=== PATIENT | female | born 1950 | race African-American/Black ===

== ENCOUNTER → 2020-01-05 | Outpatient (CLI) | payer MEDICARE ==
--- NOTE | 2020-01-05 19:18 | CT ---
EXAMINATION TYPE: CT chest wo con DATE OF EXAM: 01/05/2020 COMPARISON: None HISTORY: chest mass CT DLP: 152.4 mGycm. Automated Exposure Control for Dose Reduction was Utilized. TECHNIQUE: CT scan of the thorax is performed without IV contrast. FINDINGS: Lack of intravenous contrast could compromise sensitivity. LUNGS: The lungs are grossly clear, there is no concerning parenchymal mass or nodule identified. T here is no pleural effusion or pneumothorax seen. The tracheobronchial tree is patent. MEDIASTINUM: Lack of IV contrast is noted to limit evaluation for mediastinal and especially hilar ad enopathy. There are no definitive greater than 1 cm hilar or mediastinal lymph nodes. No cardiomega ly or pericardial effusion is seen. 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 The right subclavian artery courses posterior to the esophagus. Mild coronary artery calcification suspected. OTHER: Fat density focus is present just superficial to the inferior margin of the left scapula cons istent with lipoma measuring approximately 4 cm in AP dimension by 2.8 cm in transverse dimension by 5 cm in cephalad to caudal dimension. Probable cortical cysts associated with the kidneys. Upper pole the right kidney shows a cystic focus measuring 5.8 cm, at the midpole the left kidney there is a lo w dense focus measuring 5 cm, additional low dense focus in the midpole the left kidney anteriorly me asures 2.8 cm in the lower pole focus measuring 11 mm. Low dense focus within the right lobe of liver towards the diaphragm measures 1 cm likely represent cyst. Question enlargement of the thyroid gland , correlate clinically. Retroaortic left renal vein is suspected. IMPRESSION: Noncontrast exam. Lipoma and the posterior left chest inferior margin of the left scapula as described. Correlate for patient's clinical abnormality which is not described in history. Possib le thyromegaly. Aberrant anatomy as described. Additional findings above.
== END | disposition home or self-care (01) ==
LOC: RADCTMAIN 15:08
PROVIDERS: ATTEND Family Medicine
DX: D17.1 Benign lipomatous neoplasm of skin and subcutaneous tissue of trunk (principal); R22.2 Localized swelling, mass and lump, trunk; Z88.1 Allergy status to other antibiotic agents
CPT/HCPCS: 71250

== ENCOUNTER 2023-03-24 10:55 | Observation (INO) | payer MEDICARE ==
[2023-03-24] MEDS ORDERED: NITROGLYCERIN SL TABS 0.4 MG TAB SUBLINGUAL STA (11:24)
[2023-03-24 11:59] LABS: Partial Thromboplastin Time 27.6 sec (22.0-30.0); Prothrombin Time 10.8 sec (9.0-12.0)
--- NOTE | 2023-03-24 12:12 | ED ---
Chest Pain HPI - General Chief Complaint: Chest Pain Stated Complaint: chest tightness Time Seen by Provider: 03/24/23 11:19 Source: patient, RN notes reviewed Mode of arrival: ambulatory Limitations: no limitations, physical limitation - History of Present Illness Initial Comments: This is a 72-year-old female who presents to the emergency department for chest pain and tightness. States that this started a couple of days ago. Denies any shortness of breath. Also denies any history of similar symptoms in the past. Pain is worse with exertion and improves with rest. Reports a history of a heart murmur, but otherwise denies any cardiac history. Denies any fevers, chills, sore throat, cough, dyspnea, palpitations, abdominal pain, nausea, vomiting, diarrhea, back pain, or headaches. MD Complaint: chest pain Onset/Timin -: days(s) - Related Data Home Medications Medication Instructions Recorded Confirmed Amiodarone [Cordarone] 100 mg PO BID 03/24/23 03/24/23 Apixaban [Eliquis] 5 mg PO BID 03/24/23 03/24/23 Aspirin EC [Ecotrin] 325 mg PO DAILY 03/24/23 03/24/23 Fluticasone Propionate 220 Mcg 2 puff INHALATION RT-BID 03/24/23 03/24/23 [Flovent 220 Mcg Inhaler] HYDROcodone/APAP 5-325MG [[place] 0.5 - 1 tab PO DAILY PRN 03/24/23 03/24/23 5-325] Ipratropium-Albuterol Nebulize 3 ml INHALATION RT-Q6H PRN 03/24/23 03/24/23 [Duoneb 0.5 mg-3 mg/3 ml Soln] Montelukast [Singulair] 10 mg PO HS 03/24/23 03/24/23 Simvastatin [Zocor] 20 mg PO DAILY 03/24/23 03/24/23 amLODIPine [Norvasc] 10 mg PO DAILY 03/24/23 03/24/23 Allergies Allergy/AdvReac Type Severity Reaction Status Date / Time No Known Allergies Allergy Verified 03/24/23 13:02 Review of Systems ROS Statement: Those systems with pertinent positive or pertinent negative responses have been documented in the HPI. ROS Other: All systems not noted in ROS Statement are negative. Past Medical History Past Medical History: Asthma Additional Past Medical History / Comment(s): Heart murmur, bronchitis. History of Any Multi-Drug Resistant Organisms: None Reported Past Surgical History: No Surgical Hx Reported Past Psychological History: No Psychological Hx Reported Smoking Status: Current every day smoker Past Alcohol Use History: None Reported Past Drug Use History: None Reported General Exam Limitations: no limitations, physical limitation General appearance: alert, in no apparent distress Head exam: Present: atraumatic, normocephalic, normal inspection Respiratory exam: Present: normal lung sounds bilaterally. Absent: respiratory distress, wheezes, rales, rhonchi, stridor, chest wall tenderness Cardiovascular Exam: Present: regular rate, normal rhythm, normal heart sounds. Absent: systolic murmur, diastolic murmur, rubs, gallop, clicks GI/Abdominal exam: Present: soft, normal bowel sounds. Absent: distended, tenderness, guarding, rebound, rigid Neurological exam: Present: alert, oriented X3, CN II-XII intact Psychiatric exam: Present: normal affect, normal mood Skin exam: Present: warm, dry, intact, normal color. Absent: rash Course Vital Signs 03/24/23 03/24/23 03/24/23 10:56 13:01 14:05 Temperature 98 F Pulse Rate 66 53 L 60 Respiratory 20 18 18 Rate Blood Pressure 167/71 164/85 165/87 O2 Sat by Pulse 98 100 100 Oximetry Chest Pain MDM - MDM This is a 72 year old female who presents to the emergency department for chest pain. Was pt. sent in by a medical professional or institution? @ -No Did you speak to anyone other than the patient for history? @ -No Did you review nursing and triage notes? @ -Yes, and I agree, it is accurate with regards to the patient's symptoms. Were old charts reviewed? @ -No Differential Diagnosis? @ -Differential Chest Pain: Stable Angina, Unstable Angina, STEMI, NSTEMI Aortic Dissection, Pneumothorax, Musculoskeletal, Esophageal Spasm GERD, Cholecystitis, Pancreatitis, Zoster, this is not meant to be an all-inclusive list. EKG interpreted by me (3pts min.)? @ -EKG interpreted by me demonstrating the following: Sinus bradycardia. Ventricular rate 55 BPM, CA interval 152 ms, QRS duration 85 ms, QTc 342 ms. X-rays interpreted by me (1pt min.)? @ -Chest x-ray obtained, my interpretation identifies no localized consolidations or infiltrates. CT interpreted by me (1pt min.)? @ -Not obtained U/S interpreted by me (1pt. min.)? @ -Not obtained What testing was considered but not performed? (CT, X-rays, U/S, labs)? Why? @ -None What meds were considered but not given? Why? @ -None Did you discuss the management of the patient with other professionals? @ -Yes, Dr. Salgado, who accepts the patient for admission. Did you reconcile home meds? @ -No Was smoking cessation discussed for >3mins.? @ -No Was critical care preformed (if so, how long)? @ -No Were there social determinants of health that impacted care today? How? (Homelessness, low income, unemployed, alcoholism, drug addiction, transportation, low edu. Level, literacy, decrease access to med. care, alf, rehab)? @ -No Was there de-escalation of care discussed even if they declined? (Discuss DNR or withdrawal of care, Hospice)? @ -No What co-morbidities impacted this encounter? (DM, HTN, Smoking, COPD, CAD, Cancer, CVA, Hep., AIDS, mental health diagnosis, sleep apnea, morbid obesity)? @ -Asthma, heart murmur Was patient admitted / discharged? @ -Admitted. Lab work obtained and found to be nonactionable. Chest x-ray reveals no acute process. She is given a dose of nitroglycerin, which she states significantly improved the chest pain/tightness sensation. However, symptoms returned shortly thereafterwards. We were going to do nitro paste, however she was hypotensive and we decided to avoid this for the meantime. Patient has a heart score of 4. Given her him symptoms, heart score, and the fact that symptoms are relieved with nitro, will admit to medicine for cardiac rule out. Serial troponins and cardiology consult ordered. Undiagnosed new problem with uncertain prognosis? @ -None Drug Therapy requiring intensive monitoring for toxicity (Heparin, Nitro, Insulin, Cardizem)? @ -None Were any procedures done? @ -None Diagnosis/symptom? @ -Chest pain Acute, or Chronic, or Acute on Chronic? @ -Acute Uncomplicated (without systemic symptoms) or Complicated (systemic symptoms)? @ -Uncomplicated Side effects of treatment? @ -None Exacerbation, Progression, or Severe Exacerbation] @ -Not applicable Poses a threat to life or bodily function? @ -Yes This case was discussed in detail with the attending ED physician, Dr. Lundberg. Presentation, findings, and treatment plan discussed in detail as well. Disposition Clinical Impression: Chest pain Disposition: ADMITTED IP TO THIS HOSP
[2023-03-24 12:19] LABS: ALT 12 U/L (4-34); AST 18 U/L (14-36); African American GFR (CKD) 74 (>60 ml/min/1.73 sqM); Alkaline Phosphatase 90 U/L (38-126); Anion Gap 10 mmol/L; Blood Urea Nitrogen 14 mg/dL (7-17); Carbon Dioxide 23 mmol/L (22-30); Chloride 108 mmol/L (98-107); Glucose 100 mg/dL (74-99); Magnesium 2.1 mg/dL (1.6-2.3); Non-African American GFR(CKD) 64 (>60 ml/min/1.73 sqM); Potassium 4.1 mmol/L (3.5-5.1); Sodium 141 mmol/L (137-145); Total Bilirubin 0.5 mg/dL (0.2-1.3)
--- NOTE | 2023-03-24 12:28 | XR ---
EXAMINATION TYPE: XR chest 2V DATE OF EXAM: 03/24/2023 COMPARISON: None HISTORY: 72-year-old female with chest pain TECHNIQUE: PA and lateral views FINDINGS: Heart upper limits of normal in size. Mild atherosclerotic arch calcifications. No consolidation or p leural effusion. IMPRESSION: No acute cardiopulmonary process.
[2023-03-24] MEDS ORDERED: NITROGLYCERIN 0.2MG/HR PATCH TRANSDERM STA (12:40)
[2023-03-24] MEDS ORDERED: NITROGLYCERIN 0.1MG/HR PATCH TRANSDERM ONE (12:40)
[2023-03-24 12:45] LABS: Basophils % (A) 1 %; Eosinophils # (A) 0.1 k/uL (0-0.7); Eosinophils % (A) 3 %; HCT 40.2 % (34.0-46.0); HGB 13.2 gm/dL (11.4-16.0); Lymphocytes # (A) 1.4 k/uL (1.0-4.8); Lymphocytes % (A) 29 %; MCH 30.5 pg (25.0-35.0); MCHC 32.7 g/dL (31.0-37.0); MCV 93.2 fL (80.0-100.0); Mean Platelet Volume 9.2; Monocytes # (A) 0.3 k/uL (0-1.0); Monocytes % (A) 7 %; Neutrophils # (A) 2.8 k/uL (1.3-7.7); Neutrophils % (A) 57 %; Platelet Count 244 k/uL (150-450); RBC 4.31 m/uL (3.80-5.40); RDW 15.5 % (11.5-15.5)
[2023-03-24] MEDS ORDERED: ONDANSETRON 4 MG/2 ML VIAL IVP PRN (13:43)
[2023-03-24] MEDS ORDERED: HYDROcodone/APAP 5-325MG 1 EACH TAB PO PRN (13:43)
[2023-03-24] MEDS ORDERED: NALOXONE 0.4 MG/ML 1 ML VIAL IV PRN (13:43)
[2023-03-24] MEDS ORDERED: ACETAMINOPHEN TAB 325 MG TAB PO PRN (13:43)
[2023-03-24] MEDS ORDERED: IPRATROPIUM-ALBUTEROL 3 ML NEB INHALATION PRN (16:14)
[2023-03-24] MEDS ORDERED: amLODIPine 10 MG TAB PO STA (19:23)
[2023-03-24] MEDS: MONTELUKAST 10 MG TAB PO SCH (20:22)
[2023-03-24] MEDS: AMIODARONE 100 MG TAB PO SCH (20:22)
[2023-03-24] MEDS: APIXABAN 5 MG TAB PO SCH (20:22)
--- NOTE | 2023-03-24 20:36 | HP ---
HISTORY AND PHYSICAL CHIEF COMPLAINT: Chest pain. HISTORY OF PRESENT ILLNESS: This is another admission for this 72-year-old female, who does have a history of hypertension. She has been fairly well controlled and doing well. She came into the emergency room with chest pain. She denied shortness of breath or diaphoresis. Troponin was normal. She was admitted for evaluation. PHYSICAL EXAMINATION: HEAD, EARS, EYES, NOSE, MOUTH, AND THROAT: Normal. CHEST: Clear. CARDIAC: Normal. ABDOMEN: Soft and nontender. EXTREMITIES: Normal. REVIEW OF SYSTEMS: Otherwise, negative. Past medical history, family history, and personal and social histories are all still noncontributory. DIAGNOSES: She is admitted to the hospital with diagnoses: 1. Chest pain. 2. History of hypertension. PLAN: 1. Bed rest. 2. IV fluids. 3. Control hypertension while working up her chest pain. MMODL / DARIELAN: [id number] /
[2023-03-25] MEDS: amLODIPine 10 MG TAB PO SCH (08:12)
[2023-03-25] MEDS: ATORVASTATIN 10 MG TAB PO SCH (08:12)
[2023-03-25] MEDS: APIXABAN 5 MG TAB PO SCH ×2 (08:12→20:31)
[2023-03-25] MEDS: AMIODARONE 100 MG TAB PO SCH ×2 (08:13→20:31)
--- NOTE | 2023-03-25 08:31 | P.CRDCN ---
History of Present Illness Consult date: 03/25/23 History of present illness: History of Present Illness: The patient is a 72-year-old female with history of hypertension, hyperlipidemia who stop smoking 2 weeks ago and presented with symptoms of chest discomfort. The discomfort woke her up from sleep around 3:00 in the morning and lasted for about an hour. She has no radiation with the discomfort or associated symptoms. She was recently admitted at [facility] and underwent an echocardiogram. She is on amiodarone and Eliquis she is not clear why, she thinks she had an arrhythmia. She has occasional palpitations but she was in sinus on presentation. She has a history of heart murmur but no documented history of ischemic heart disease. She has no PND, orthopnea or peripheral edema. She is average in her exercise tolerance and does not feel that the discomfort in the chest is activity related. On presentation her EKG showed no acute changes and her enzymes were normal. She is a nondiabetic but she has hypertension, hyperlipidemia and she stop smoking recently. Medications: Simvastatin 20 mg daily, Norvasc 10 mg daily, Singulair 10 mg daily, amiodarone 100 mg twice a day, aspirin, Flovent, Duoneb, Eliquis 5 mg twice a day Review of Systems: Respiratory: She has a history of dyspnea on exertion, stopped smoking 2 weeks ago GI: No nausea or vomiting . No history of peptic ulcer disease. No recent GI bleed. : No hematuria or dysuria. Nervous System: No stroke or seizure. Physical Examination: 72-year-old female, alert and oriented no apparent distress ,Blood pressure 160 /60, Heart rate 57 Head: Normocephalic. Eyes: Sclerae nonicteric. Neck: Good carotid upstroke, no bruit, no jugular venous distention. Lungs: Clear to auscultation. Heart: Regular rate and rhythm, S1-S2, no S3, no rub. Systolic ejection murmur, 2/6. Abdomen: Soft nontender, positive bowel sounds no organomegaly. Extremities: No edema, intact distal pulses. Labs: Hemoglobin 13.2, potassium 4.1, BUN 14, creatinine 0.9, troponin less than 0.012. Chest x-ray with no acute infiltrate EKG: Sinus mechanism, rate of [address]-T wave changes Impression: 1. Chest discomfort of unclear etiology, no evidence of acute coronary syndrome 2. Possible history of atrial fibrillation from her medications list. The patient is in sinus mechanism at this time 3. History of hypertension 4. History of hyperlipidemia 5. History of smoking, stopped 2 weeks ago Plan: 1. Obtain records of her recent admission including her echocardiogram 2. Proceed with stress echocardiogram 3. Continue present medical regimen 4. Depending on the results of her testing further recommendations will be made 5. Thank you for this consult we will follow with you. Past Medical History Past Medical History: Asthma Additional Past Medical History / Comment(s): Heart murmur, bronchitis. History of Any Multi-Drug Resistant Organisms: None Reported Past Surgical History: No Surgical Hx Reported Past Psychological History: No Psychological Hx Reported Smoking Status: Current every day smoker Past Alcohol Use History: None Reported Past Drug Use History: None Reported Medications and Allergies Home Medications Medication Instructions Recorded Confirmed Type Amiodarone [Cordarone] 100 mg PO BID 03/24/23 03/24/23 History Apixaban [Eliquis] 5 mg PO BID 03/24/23 03/24/23 History Aspirin EC [Ecotrin] 325 mg PO DAILY 03/24/23 03/24/23 History Fluticasone Propionate 220 Mcg 2 puff INHALATION RT-BID 03/24/23 03/24/23 Histor y [Flovent 220 Mcg Inhaler] HYDROcodone/APAP 5-325MG [[place] 0.5 - 1 tab PO DAILY PRN 03/24/23 03/24/23 History 5-325] Ipratropium-Albuterol Nebulize 3 ml INHALATION RT-Q6H PRN 03/24/23 03/24/23 History [Duoneb 0.5 mg-3 mg/3 ml Soln] Montelukast [Singulair] 10 mg PO HS 03/24/23 03/24/23 History Simvastatin [Zocor] 20 mg PO DAILY 03/24/23 03/24/23 History amLODIPine [Norvasc] 10 mg PO DAILY 03/24/23 03/24/23 History Allergies Allergy/AdvReac Type Severity Reaction Status Date / Time No Known Allergies Allergy Verified 03/24/23 13:02 Physical Exam Vitals: Vital Signs Temp Pulse Pulse Resp BP BP Pulse Ox 03/25/23 07:53 99 03/25/23 06:59 98.3 F 57 L 16 160/65 99 03/25/23 02:35 97.8 F 46 L 12 143/72 100 03/24/23 19:50 98.1 F 51 L 14 144/54 100 03/24/23 17:40 98.3 F 52 L 16 176/53 100 03/24/23 17:06 55 L 18 171/76 99 03/24/23 14:05 60 18 165/87 100 03/24/23 13:01 53 L 18 164/85 100 03/24/23 10:56 98 F 66 20 167/71 98 Intake and Output 03/24/23 03/25/23 03/25/23 22:59 06:59 14:59 Other: # Voids 0 1 Weight 60.781 kg Results 03/24/23 11:09 03/24/23 11:09 Cardiac Enzymes 03/24/23 03/24/23 03/24/23 Range/Units 11:09 11:09 14:14 AST 18 (14-36) U/L Troponin I <0.012 <0.012 (0.000-0.034) ng/mL 03/24/23 Range/Units 17:49 AST (14-36) U/L Troponin I <0.012 (0.000-0.034) ng/mL Coagulation 03/24/23 Range/Units 11:09 PT 10.8 (9.0-12.0) sec APTT 27.6 (22.0-30.0) sec CBC 03/24/23 Range/Units 11:09 WBC 5.0 (3.8-10.6) k/uL RBC 4.31 (3.80-5.40) m/uL Hgb 13.2 (11.4-16.0) gm/dL Hct 40.2 (34.0-46.0) % Plt Count 244 (150-450) k/uL Comprehensive Metabolic Panel 03/24/23 Range/Units 11:09 Sodium 141 (137-145) mmol/L Potassium 4.1 (3.5-5.1) mmol/L Chloride 108 H (98-107) mmol/L Carbon Dioxide 23 (22-30) mmol/L BUN 14 (7-17) mg/dL Creatinine 0.90 (0.52-1.04) mg/dL Glucose 100 H (74-99) mg/dL Calcium 9.0 (8.4-10.2) mg/dL AST 18 (14-36) U/L ALT 12 (4-34) U/L Alkaline Phosphatase 90 (38-126) U/L Total Protein 7.0 (6.3-8.2) g/dL Albumin 4.0 (3.5-5.0) g/dL Current Medications Generic Name Dose Route Start Last Admin Trade Name Freq PRN Reason Stop Dose Admin Acetaminophen 650 mg 03/24/23 13:43 Acetaminophen Tab 325 Mg Tab PO Q6HR PRN Mild Pain or Fever > 100.5 Hydrocodone Bitart/Acetaminophen 1 each 03/24/23 13:43 Hydrocodone/Apap 5-325mg 1 Each Tab PO Q4HR PRN Moderate Pain (Scale 4 to 6) Albuterol/Ipratropium 3 ml 03/24/23 16:14 Ipratropium-Albuterol 3 Ml Neb INHALATION RT-Q6H PRN Shortness Of Breath Amiodarone HCl 100 mg 03/24/23 21:00 03/25/23 08:13 Amiodarone 100 Mg Tab PO Not Given BID HERB Amlodipine Besylate 10 mg 03/25/23 09:00 03/25/23 08:12 Amlodipine 10 Mg Tab PO 10 mg DAILY HERB Administration Apixaban 5 mg 03/24/23 21:00 03/25/23 08:12 Apixaban 5 Mg Tab PO 5 mg BID HERB Administration Protocol Aspirin 325 mg 03/25/23 09:00 03/25/23 08:12 Aspirin 325 Mg Tab PO 325 mg DAILY HERB Administration Atorvastatin Calcium 10 mg 03/25/23 09:00 03/25/23 08:12 Atorvastatin 10 Mg Tab PO 10 mg DAILY HERB Administration Montelukast Sodium 10 mg 03/24/23 21:00 03/24/23 20:22 Montelukast 10 Mg Tab PO 10 mg HS HERB Administration Naloxone HCl 0.2 mg 03/24/23 13:43 Naloxone 0.4 Mg/Ml 1 Ml Vial IV Q2M PRN Opioid Reversal Ondansetron HCl 4 mg 03/24/23 13:43 Ondansetron 4 Mg/2 Ml Vial IVP Q8HR PRN Nausea And Vomiting Intake and Output 03/24/23 03/25/23 03/25/23 22:59 06:59 14:59 Other: # Voids 0 1 Weight 60.781 kg 03/24/23 11:09 03/24/23 11:09
[2023-03-25] MEDS ORDERED: ASPIRIN 325 MG TAB PO SCH (09:00)
[2023-03-25] MEDS: ASPIRIN 81 MG PO SCH (09:13)
--- NOTE | 2023-03-25 13:21 | CA ---
Stress Echo Report Emilia Reyes Age: 72 Gender: F : 1950 Exam Date: 03/25/2023 10:55 Exam Location: [facility] Ht (in): 63 Wt (lb): 134 Ordering Physician: Sonia Monterroso MD ([id number]) Referring Physician: SONIA MONTERROSO,, Electrical Cad Technician: Garima Russo RDCS Technologist Procedure CPT: Indication: Chest Pain ICD-9 Codes: Rhythm: Patient History: Atypical angina, Hyperlipidemia, Hypertension, Family history Cardiac Medications: Medications in past 24 hours: Contrast: Stress Results Protocol: Montrell Total dose(mL): Exercise Duration (min:sec): 7:[address] Depression (mm): Angina Score: Dias Score: METS: 8.9 Resting HR: 53 Resting BP: 153 / 73 Peak HR: 124 Peak BP: 189 / 85 Max Predicted HR: 148 84 % Max Predicted HR Target HR: 126 Double Product: [id number] Stress Summary: BP Response: Normal Reason for Termination: MAX EXERTION,Fatigue Cardiac Symptoms: NO SYMPTOMS ECG Analysis Resting ECG: Normal sinus rhythm, normal ECG Stress ECG: No abnormal ST/T wave changes with exercise Arrhythmia: None Echo Analysis Resting Echo: Normal resting echocardiogram. Peak Echo Analysis: Normal wall thickening and motion MEASUREMENTS (Male/Female) Normal Values CONCLUSIONS 1. Good exercise tolerance with normal electrocardiographic response to exercise 2. Normal stress echocardiogram with no evidence of stress- induced ischemia. Dr. Sonia Monterroso MD (Electronically Signed) Final Date: 25 March 2023 13:20
[2023-03-25 14:18] LABS: LDL Cholesterol,Calculated 91.1 mg/dL (0.0-131.0); VLDL Calculation 15.32 mg/dL (5.00-40.00)
[2023-03-25] MEDS ORDERED: ARTIFICIAL TEARS-HYPROMELLOSE DROPS 15 ML BTL BOTH EYES PRN (17:01)
[2023-03-25] MEDS: MONTELUKAST 10 MG TAB PO SCH (20:31)
--- NOTE | 2023-03-26 01:55 | PN ---
PROGRESS NOTE CHIEF COMPLAINT: Chest pain. HISTORY OF PRESENT ILLNESS: This lady is doing well and the pain has subsided. REVIEW OF SYSTEMS: Otherwise unremarkable. PHYSICAL EXAMINATION: CHEST: Clear. CARDIAC: Normal. She is in sinus rhythm. IMPRESSION: 1. Chest pain. 2. History of recent onset of atrial fibrillation, under control with amiodarone. PLAN: Increase activity and wait for recommendations from Cardiology. MMODL / IJN: [id number] /
[2023-03-26 08:12] VITALS: PULSE 54; RESP 16
[2023-03-26] MEDS: ASPIRIN 81 MG PO SCH (08:26)
[2023-03-26] MEDS: APIXABAN 5 MG TAB PO SCH (08:26)
[2023-03-26] MEDS: AMIODARONE 100 MG TAB PO SCH (08:26)
[2023-03-26] MEDS: amLODIPine 10 MG TAB PO SCH (08:26)
[2023-03-26] MEDS: ATORVASTATIN 10 MG TAB PO SCH (08:26)
--- NOTE | 2023-03-26 10:48 | P.PN ---
Subjective Progress Note Date: 03/26/23 History of Present Illness: The patient is a 72-year-old female with history of hypertension, hyperlipidemia who stop smoking 2 weeks ago and presented with symptoms of chest discomfort. The discomfort woke her up from sleep around 3:00 in the morning and lasted for about an hour. She has no radiation with the discomfort or associated symptoms. She was recently admitted at [facility] and underwent an echocardiogram. She is on amiodarone and Eliquis she is not clear why, she thinks she had an arrhythmia. She has occasional palpitations but she was in sinus on presentation. She has a history of heart murmur but no documented history of ischemic heart disease. She has no PND, orthopnea or peripheral edema. She is average in her exercise tolerance and does not feel that the di scomfort in the chest is activity related. On presentation her EKG showed no acute changes and her enzymes were normal. She is a nondiabetic but she has hypertension, hyperlipidemia and she stop smoking recently. Medications: Simvastatin 20 mg daily, Norvasc 10 mg daily, Singulair 10 mg daily, amiodarone 100 mg twice a day, aspirin, Flovent, Duoneb, Eliquis 5 mg twice a day 03/26 Patient underwent stress echocardiogram that was normal. Sec. has attempted to obtain records from [facility] yesterday and today with no results. Patient states that she has appointment with Dr. Aaron for follow-up on March 30. Blood pressure is 162/77, heart rate in the 50s, afebrile, pulse ox 100% on room air. Physical Examination: 72-year-old female, alert and oriented no apparent distress ,Blood pressure 160/60, Heart rate 57 Head: Normocephalic. Eyes: Sclerae nonicteric. Neck: Good carotid upstroke, no bruit, no jugular venous distention. Lungs: Clear to auscultation. Heart: Regular rate and rhythm, S1-S2, no S3, no rub. Systolic ejection murmur, 2/6. Abdomen: Soft nontender, positive bowel sounds no organomegaly. Extremities: No edema, intact distal pulses. Impression: 1. Chest discomfort of unclear etiology, no evidence of acute coronary syndrome 2. Possible history of atrial fibrillation from her medications list. The patient is in sinus mechanism at this time 3. History of hypertension 4. History of hyperlipidemia 5. History of smoking, stopped 2 weeks ago Plan: 1. Obtain records of her recent admission including her echocardiogram--no records obtained after 2 requests 2. Negative stress echocardiogram 3. Continue present medical regimen 4. Patient is cleared from cardiology for discharge to make follow-up with Dr. Aaron is scheduled. Impression and plan of care have been directed as dictated by the signing physician. Bonnie Aggarwal nurse practitioner acting as scribe for signing physician. Objective - Vital Signs Vital signs: Vital Signs Temp 97.7 F 03/26/23 02:35 Pulse 50 L 03/26/23 02:35 Resp 13 03/26/23 02:35 BP 137/71 03/26/23 02:35 Pulse Ox 100 03/26/23 02:35 FiO2 Intake & Output 03/25/23 03/26/23 03/26/23 18:59 06:59 18:59 Intake Total 236 Balance 236 Intake: Oral 236 Other: Voiding Method Toilet Toilet # Voids 1 2 - Labs CBC & Chem 7: 03/24/23 11:09 03/24/23 11:09 Labs: Abnormal Lab Results - Last 24 Hours (Table) 03/24/23 Range/Units 11:09 HDL Cholesterol 62.60 H (40.00-60.00) mg/dL
[2023-03-26 14:03] VITALS: BP 119/62; TEMP 98.5
--- NOTE | 2023-03-27 10:04 | DS ---
DISCHARGE SUMMARY CHIEF COMPLAINT: Chest pain. HISTORY OF PRESENT ILLNESS AND PHYSICAL EXAMINATION: Details of this lady's history and physical can be found in the initial workup. LABORATORY STUDIES: While she is in a hospital, she had laboratory studies, details of which can be found in the laboratory section of her chart. COURSE IN HOSPITAL: After admission, she was placed on bedrest on intravenous fluids and she had serial EKGs and enzymes which were normal. She was seen by Cardiology. It was not felt that she required any further intervention and she was stable and she will go home on and will be followed up in the office in several days. FINAL DIAGNOSES: 1. Chest pain. 2. Hypertension. OPERATIONS: None. CONSULTATIONS: Cardiology, she is improved. MMODL / IJN: [id number] /
== END 2023-03-26 18:18 | disposition home or self-care (01) ==
LOC: EC 10:55 → 6NMEDSUR 14:43
PROVIDERS: ADMIT Family Medicine; ATTEND Family Medicine
DX: R07.89 Other chest pain (principal); I10 Essential (primary) hypertension; I48.91 Unspecified atrial fibrillation; E78.5 Hyperlipidemia, unspecified; Z79.899 Other long term (current) drug therapy; R01.1 Cardiac murmur, unspecified; Z87.891 Personal history of nicotine dependence; Z79.01 Long term (current) use of anticoagulants; Z79.82 Long term (current) use of aspirin; Z82.49 Family history of ischemic heart disease and other diseases of the circulatory system
CPT/HCPCS: 99285; 36415; 94760; 93005; 93351; 80061; 80053; 83735; 84484; 85025; 85610; 85730; 71046; G0378 ×3

== ENCOUNTER 2023-05-30 08:53 | Emergency (ER) | payer MEDICARE ==
--- NOTE | 2023-05-30 09:31 | XR ---
EXAMINATION TYPE: XR chest 2V DATE OF EXAM: 05/30/2023 COMPARISON: 05/22/2023 HISTORY: Difficulty breathing TECHNIQUE: Frontal and lateral views of the chest are obtained. FINDINGS: There is no focal air space opacity, pleural effusion, or pneumothorax seen. The cardiac silhouette size is within normal limits. The osseous structures are intact. IMPRESSION: No acute cardiopulmonary process. No significant interval change.
--- NOTE | 2023-05-30 09:51 | ED ---
General Adult HPI - General Chief complaint: Recheck/Abnormal Lab/Rx Stated complaint: Chest Pain Time Seen by Provider: 05/30/23 09:01 Source: patient, RN notes reviewed, old records reviewed Mode of arrival: ambulatory Limitations: no limitations - History of Present Illness Initial comments: 72-year-old female presenting for recheck of chest tightness. Ongoing issue for at least a month maybe longer. She is been admitted to the hospital and stress test performed she is undergoing out further outpatient testing. She states her symptoms are unchanged but continue. No pain. No cough. No fever. - Related Data Home Medications Medication Instructions Recorded Confirmed Amiodarone [Cordarone] 100 mg PO BID 03/24/23 03/24/23 Apixaban [Eliquis] 5 mg PO BID 03/24/23 03/24/23 Aspirin EC [Ecotrin] 325 mg PO DAILY 03/24/23 03/24/23 Fluticasone Propionate 220 Mcg 2 puff INHALATION RT-BID 03/24/23 03/24/23 [Flovent 220 Mcg Inhaler] HYDROcodone/APAP 5-325MG [[place] 0.5 - 1 tab PO DAILY PRN 03/24/23 03/24/23 5-325] Ipratropium-Albuterol Nebulize 3 ml INHALATION RT-Q6H PRN 03/24/23 03/24/23 [Duoneb 0.5 mg-3 mg/3 ml Soln] Montelukast [Singulair] 10 mg PO HS 03/24/23 03/24/23 Simvastatin [Zocor] 20 mg PO DAILY 03/24/23 03/24/23 amLODIPine [Norvasc] 10 mg PO DAILY 03/24/23 03/24/23 Previous Rx's Medication Instructions Recorded Albuterol Inhaler [Ventolin Hfa 1 puff INHALATION QID #8 gm 05/22/23 Inhaler] Doxycycline Hyclate 100 mg PO BID 7 Days #14 capsule 05/22/23 predniSONE [Deltasone] 40 mg PO DAILY 5 Days #10 tab 05/22/23 Allergies Allergy/AdvReac Type Severity Reaction Status Date / Time No Known Allergies Allergy Verified 05/30/23 09:01 Review of Systems ROS Statement: Those systems with pertinent positive or pertinent negative responses have been documented in the HPI. ROS Other: All systems not noted in ROS Statement are negative. Past Medical History Past Medical History: Asthma Additional Past Medical History / Comment(s): Heart murmur, bronchitis. History of Any Multi-Drug Resistant Organisms: None Reported Past Surgical History: No Surgical Hx Reported Past Psychological History: No Psychological Hx Reported Smoking Status: Former smoker Past Alcohol Use History: None Reported Past Drug Use History: None Reported General Exam Limitations: no limitations General appearance: alert, in no apparent distress Head exam: Present: atraumatic, normocephalic Eye exam: Present: normal appearance, PERRL ENT exam: Present: normal exam Neck exam: Present: normal inspection. Absent: tenderness, meningismus Respiratory exam: Present: normal lung sounds bilaterally. Absent: respiratory distress, wheezes Cardiovascular Exam: Present: regular rate, normal rhythm GI/Abdominal exam: Present: soft. Absent: distended, tenderness, guarding Extremities exam: Present: normal inspection. Absent: pedal edema, calf tenderness Neurological exam: Present: alert, oriented X3, CN II-XII intact. Absent: motor sensory deficit Psychiatric exam: Present: normal affect, normal mood Course Vital Signs 05/30/23 08:57 Temperature 98.1 F Pulse Rate 58 L Respiratory 18 Rate Blood Pressure 161/77 O2 Sat by Pulse 98 Oximetry Medical Decision Making - Medical Decision Making Was pt. sent in by a medical professional or institution (ORTIZ Finch, CHASSIS WIRER, urgent care, hospital, or fpc...) When possible be specific @ -No Did you speak to anyone other than the patient for history (EMS, parent, family, police, friend...)? What history was obtained from this source @ -No Did you review nursing and triage notes (agree or disagree)? Why? @ -I reviewed and agree with nursing and triage notes Were old charts reviewed (outside hosp., previous admission, EMS record, old EKG, old radiological studies, urgent care reports/EKG's, fpc records)? Report findings @ -No old charts were reviewed Differential Diagnosis (chest pain, altered mental status, abdominal pain women, abdominal pain men, vaginal bleeding, weakness, fever, dyspnea, syncope, headache, dizziness, GI bleed, back pain, seizure, CVA, palpatations, mental health, musculoskeletal)? @ Differential Chest Pain: Stable Angina, Unstable Angina, STEMI, NSTEMI Aortic Dissection, Pneumothorax, Musculoskeletal, Esophageal Spasm GERD, Cholecystitis, Pancreatitis, Zoster, this is not meant to be an all-inclusive list. EKG interpreted by me (3pts min.). @ Sinus bradycardia 51, [place] interval 146, QRS duration 96, QTC 460, no ST segment elevation. X-rays interpreted by me (1pt min.). @Chest x-ray, no acute cardiac primary findings, no pneumothorax, no focal pneumonia CT interpreted by me (1pt min.). @ -None done U/S interpreted by me (1pt. min.). @ -None done What testing was considered but not performed or refused? (CT, X-rays, U/S, labs)? Why? @ -None What meds were considered but not given or refused? Why? @ -None Did you discuss the management of the patient with other professionals (professionals i.e. , PA, CHASSIS WIRER, lab, RT, psych nurse, oncology social work, operational trainer, teacher, air defense control officer, case planner)? Give summary @ -No Was smoking cessation discussed for >3mins.? @ -No Was critical care preformed (if so, how long)? @ -No Were there social determinants of health that impacted care today? How? (Homelessness, low income, unemployed, alcoholism, drug addiction, transportation, low edu. Level, literacy, decrease access to med. care, [facility], rehab)? @ -No Was there de-escalation of care discussed even if they declined (Discuss DNR or withdrawal of care, Hospice)? DNR status @ -No What co-morbidities impacted this encounter? (DM, HTN, Smoking, COPD, CAD, Cancer, CVA, ARF, Chemo, Hep., AIDS, mental health diagnosis, sleep apnea, morbid obesity)? @ -Hypertension, atrial fibrillation, chronic bronchitis Was patient admitted / discharged? Hospital course, mention meds given and route, prescriptions, significant lab abnormalities, going to OR and other pertinent info. @17-year-old female with episode of chest tightness which is been ongoing for the past month. EKG is sinus bradycardia without ST segment elevation. Patient's lungs are clear to auscultation. She is on our requests and has been compliant with medications. She has no cough or fever. She is following up with cardiology and her primary care provider and is stable for continued outpatient follow-up. Laboratory testing are unremarkable. Undiagnosed new problem with uncertain prognosis? @ -No Drug Therapy requiring intensive monitoring for toxicity (Heparin, Nitro, Insulin, Cardizem)? @ -No Were any procedures done? @ -No Diagnosis/symptom? @ -Chest tightness Acute, or Chronic, or Acute on Chronic? @Chronic Uncomplicated (without systemic symptoms) or Complicated (systemic symptoms)? @ -default Side effects of treatment? @ -No Exacerbation, Progression, or Severe Exacerbation? @ -No Poses a threat to life or bodily function? How? (Chest pain, [place], [place], pneumonia, PE, COPD, DKA, ARF, appy, cholecystitis, CVA, Diverticulitis, Homicidal, Suicidal, threat to staff... and all critical care pts) @ -No - Lab Data Result diagrams: 05/30/23 09:15 05/30/23 09:15 Lab Results 05/30/23 05/30/23 05/30/23 Range/Units 09:15 09:15 09:15 WBC 8.4 (3.8-10.6) k/uL RBC 4.54 (3.80-5.40) m/uL Hgb 13.3 (11.4-16.0) gm/dL Hct 41.3 (34.0-46.0) % MCV 90.9 (80.0-100.0) fL MCH 29.4 (25.0-35.0) pg MCHC 32.3 (31.0-37.0) g/dL RDW 15.1 (11.5-15.5) % Plt Count 270 (150-450) k/uL MPV 7.7 Neutrophils % 69 % Lymphocytes % 22 % Monocytes % 6 % Eosinophils % 2 % Basophils % 0 % Neutrophils # 5.8 (1.3-7.7) k/uL Lymphocytes # 1.8 (1.0-4.8) k/uL Monocytes # 0.5 (0-1.0) k/uL Eosinophils # 0.2 (0-0.7) k/uL Basophils # 0.0 (0-0.2) k/uL PT 10.3 (9.0-12.0) sec INR 1.0 (<1.2) APTT 22.6 (22.0-30.0) sec Sodium 140 (137-145) mmol/L Potassium 4.0 (3.5-5.1) mmol/L Chloride 106 (98-107) mmol/L Carbon Dioxide 26 (22-30) mmol/L Anion Gap 8 mmol/L BUN 19 H (7-17) mg/dL Creatinine 0.88 (0.52-1.04) mg/dL Est GFR (CKD-EPI)AfAm 76 (>60 ml/min/1.73 sqM) Est GFR (CKD-EPI)NonAf 66 (>60 ml/min/1.73 sqM) Glucose 101 H (74-99) mg/dL Calcium 9.2 (8.4-10.2) mg/dL Magnesium 2.2 (1.6-2.3) mg/dL Total Bilirubin 0.5 (0.2-1.3) mg/dL AST 19 (14-36) U/L ALT 12 (4-34) U/L Alkaline Phosphatase 82 (38-126) U/L Troponin I (0.000-0.034) ng/mL NT-Pro-B Natriuret Pep 28 pg/mL Total Protein 6.9 (6.3-8.2) g/dL Albumin 3.9 (3.5-5.0) g/dL 05/30/23 Range/Units 09:15 WBC (3.8-10.6) k/uL RBC (3.80-5.40) m/uL Hgb (11.4-16.0) gm/dL Hct (34.0-46.0) % MCV (80.0-100.0) fL MCH (25.0-35.0) pg MCHC (31.0-37.0) g/dL RDW (11.5-15.5) % Plt Count (150-450) k/uL MPV Neutrophils % % Lymphocytes % % Monocytes % % Eosinophils % % Basophils % % Neutrophils # (1.3-7.7) k/uL Lymphocytes # (1.0-4.8) k/uL Monocytes # (0-1.0) k/uL Eosinophils # (0-0.7) k/uL Basophils # (0-0.2) k/uL PT (9.0-12.0) sec INR (<1.2) APTT (22.0-30.0) sec Sodium (137-145) mmol/L Potassium (3.5-5.1) mmol/L Chloride (98-107) mmol/L Carbon Dioxide (22-30) mmol/L Anion Gap mmol/L BUN (7-17) mg/dL Creatinine (0.52-1.04) mg/dL Est GFR (CKD-EPI)AfAm (>60 ml/min/1.73 sqM) Est GFR (CKD-EPI)NonAf (>60 ml/min/1.73 sqM) Glucose (74-99) mg/dL Calcium (8.4-10.2) mg/dL Magnesium (1.6-2.3) mg/dL Total Bilirubin (0.2-1.3) mg/dL AST (14-36) U/L ALT (4-34) U/L Alkaline Phosphatase (38-126) U/L Troponin I <0.012 (0.000-0.034) ng/mL NT-Pro-B Natriuret Pep pg/mL Total Protein (6.3-8.2) g/dL Albumin (3.5-5.0) g/dL Disposition Clinical Impression: Chest pain Disposition: HOME SELF-CARE Condition: Fair Instructions (If sedation given, give patient instructions): Chest Pain (ED) Is patient prescribed a controlled substance at d/c from ED?: No Referrals: Jaren Salgado MD [Primary Care Provider] - 1-2 days Time of Disposition: 11:11
[2023-05-30 10:24] LABS: Basophils % (A) 0 %; Eosinophils # (A) 0.2 k/uL (0-0.7); Eosinophils % (A) 2 %; HCT 41.3 % (34.0-46.0); HGB 13.3 gm/dL (11.4-16.0); Lymphocytes # (A) 1.8 k/uL (1.0-4.8); Lymphocytes % (A) 22 %; MCH 29.4 pg (25.0-35.0); MCHC 32.3 g/dL (31.0-37.0); MCV 90.9 fL (80.0-100.0); Mean Platelet Volume 7.7; Monocytes # (A) 0.5 k/uL (0-1.0); Monocytes % (A) 6 %; Neutrophils # (A) 5.8 k/uL (1.3-7.7); Neutrophils % (A) 69 %; Platelet Count 270 k/uL (150-450); RBC 4.54 m/uL (3.80-5.40); RDW 15.1 % (11.5-15.5); WBC 8.4 k/uL (3.8-10.6)
[2023-05-30 10:41] LABS: ALT 12 U/L (4-34); AST 19 U/L (14-36); African American GFR (CKD) 76 (>60 ml/min/1.73 sqM); Albumin 3.9 g/dL (3.5-5.0); Alkaline Phosphatase 82 U/L (38-126); Anion Gap 8 mmol/L; Blood Urea Nitrogen 19 mg/dL (7-17); Calcium 9.2 mg/dL (8.4-10.2); Carbon Dioxide 26 mmol/L (22-30); Chloride 106 mmol/L (98-107); Glucose 101 mg/dL (74-99); Magnesium 2.2 mg/dL (1.6-2.3); Non-African American GFR(CKD) 66 (>60 ml/min/1.73 sqM); Sodium 140 mmol/L (137-145); Total Bilirubin 0.5 mg/dL (0.2-1.3); Total Protein 6.9 g/dL (6.3-8.2)
[2023-05-30 10:47] LABS: NT-Pro-B-Type Natriuretic Pept 28 pg/mL
[2023-05-30 10:50] LABS: Partial Thromboplastin Time 22.6 sec (22.0-30.0); Prothrombin Time 10.3 sec (9.0-12.0)
[2023-05-30 20:03] VITALS: BP 144/75; PULSE 53; RESP 16; TEMP 98.2
== END 2023-05-30 11:32 | disposition home or self-care (01) ==
LOC: EC 08:53
DX: R07.89 Other chest pain (principal); R00.1 Bradycardia, unspecified; I10 Essential (primary) hypertension; I48.91 Unspecified atrial fibrillation; J45.909 Unspecified asthma, uncomplicated; Z79.51 Long term (current) use of inhaled steroids; Z79.82 Long term (current) use of aspirin; Z79.01 Long term (current) use of anticoagulants; Z79.899 Other long term (current) drug therapy; Z87.891 Personal history of nicotine dependence
CPT/HCPCS: 36415; 71046; 80053; 83735; 83880; 84484; 85025; 85610; 85730; 93005; 99283

== ENCOUNTER 2023-09-12 08:24 | Emergency (ER) | payer MEDICARE ==
[2023-09-12 08:34] VITALS: RESP 20; TEMP 97.7
[2023-09-12] MEDS ORDERED: SODIUM CHLORIDE 0.9% 1,000 ML IV ONE (08:45)
--- NOTE | 2023-09-12 08:48 | ED ---
General Adult HPI - General Chief complaint: Dizziness Stated complaint: congestion dizziness Time Seen by Provider: 09/12/23 08:26 Source: patient, EMS, RN notes reviewed, old records reviewed Mode of arrival: EMS Limitations: no limitations - History of Present Illness Initial comments: 73-year-old female presenting for evaluation of dizziness, lightheadedness. Symptoms were present today. Patient states she had a yesterday where she buried her brother and believes she may have overdone it. She denies chest pain. Denies current abdominal pain. Denies nausea or vomiting. She states she does have some congestion and mild cough as well. No fever. - Related Data Home Medications Medication Instructions Recorded Confirmed Amiodarone [Cordarone] 100 mg PO BID 03/24/23 03/24/23 Apixaban [Eliquis] 5 mg PO BID 03/24/23 03/24/23 Aspirin EC [Ecotrin] 325 mg PO DAILY 03/24/23 03/24/23 Fluticasone Propionate 220 Mcg 2 puff INHALATION RT-BID 03/24/23 03/24/23 [Flovent 220 Mcg Inhaler] HYDROcodone/APAP 5-325MG [[place] 0.5 - 1 tab PO DAILY PRN 03/24/23 03/24/23 5-325] Ipratropium-Albuterol Nebulize 3 ml INHALATION RT-Q6H PRN 03/24/23 03/24/23 [Duoneb 0.5 mg-3 mg/3 ml Soln] Montelukast [Singulair] 10 mg PO HS 03/24/23 03/24/23 Simvastatin [Zocor] 20 mg PO DAILY 03/24/23 03/24/23 amLODIPine [Norvasc] 10 mg PO DAILY 03/24/23 03/24/23 Previous Rx's Medication Instructions Recorded Albuterol Inhaler [Ventolin Hfa 1 puff INHALATION QID #8 gm 05/22/23 Inhaler] Doxycycline Hyclate 100 mg PO BID 7 Days #14 capsule 05/22/23 predniSONE [Deltasone] 40 mg PO DAILY 5 Days #10 tab 05/22/23 Allergies Allergy/AdvReac Type Severity Reaction Status Date / Time No Known Allergies Allergy Verified 09/12/23 08:33 Review of Systems ROS Statement: Those systems with pertinent positive or pertinent negative responses have been documented in the HPI. ROS Other: All systems not noted in ROS Statement are negative. Past Medical History Past Medical History: Asthma Additional Past Medical History / Comment(s): Heart murmur, bronchitis. History of Any Multi-Drug Resistant Organisms: None Reported Past Surgical History: No Surgical Hx Reported Past Psychological History: No Psychological Hx Reported Smoking Status: Current some day smoker Past Alcohol Use History: None Reported Past Drug Use History: None Reported General Exam Limitations: no limitations General appearance: alert, in no apparent distress Head exam: Present: atraumatic, normocephalic Eye exam: Present: normal appearance, PERRL Respiratory exam: Present: normal lung sounds bilaterally. Absent: respiratory distress, wheezes Cardiovascular Exam: Present: regular rate, normal rhythm GI/Abdominal exam: Present: soft. Absent: distended, tenderness, guarding Extremities exam: Present: normal inspection, normal capillary refill Neurological exam: Present: alert, oriented X3, CN II-XII intact. Absent: motor sensory deficit Psychiatric exam: Present: normal affect, normal mood Skin exam: Present: warm, dry, intact Course Vital Signs 09/12/23 09/12/23 08:31 10:20 Temperature 97.7 F Pulse Rate 61 58 L Respiratory 20 20 Rate Blood Pressure 161/78 138/72 O2 Sat by Pulse 100 100 Oximetry Medical Decision Making - Medical Decision Making Was pt. sent in by a medical professional or institution (Dr. PA, STRATEGIC ALLIANCES MANAGER, urgent care, hospital, or [facility]...) When possible be specific @ -No Did you speak to anyone other than the patient for history (EMS, parent, family, police, friend...)? What history was obtained from this source @ -No Did you review nursing and triage notes (agree or disagree)? Why? @ -I reviewed and agree with nursing and triage notes Were old charts reviewed (outside hosp., previous admission, EMS record, old EKG, old radiological studies, urgent care reports/EKG's, [facility] records)? Report findings @ -No old charts were reviewed Differential Diagnosis (chest pain, altered mental status, abdominal pain women, abdominal pain men, vaginal bleeding, weakness, fever, dyspnea, syncope, headache, dizziness, GI bleed, back pain, seizure, CVA, palpatations, mental health, musculoskeletal)? @ -Differential Dizziness: Benign paroxysmal positional Vertigo, Menieres disease, otitis media, acoustic neuroma, vertebrobasilar insufficiency, cerebellar stroke, encephalitis, hypovolemic, arrhythmia, coronary artery syndrome, anemia, this is not meant to be an all-inclusive list EKG interpreted by me (3pts min.). @ -Sinus bradycardia rate of 58, [place] interval 168, QRS duration 89, QTC [address] segment elevation. X-rays interpreted by me (1pt min.). @ Chest x-ray clear, no focal pneumonia. CT interpreted by me (1pt min.). @ -None done U/S interpreted by me (1pt. min.). @ -None done What testing was considered but not performed or refused? (CT, X-rays, U/S, labs)? Why? @ -None What meds were considered but not given or refused? Why? @ -None Did you discuss the management of the patient with other professionals (professionals i.e. , PA, STRATEGIC ALLIANCES MANAGER, lab, RT, psych nurse, outreach and education social worker, residential gas heat technician, teacher, fisheries enforcement officer, case advocate)? Give summary @ -No Was smoking cessation discussed for >3mins.? @ -No Was critical care preformed (if so, how long)? @ -No Were there social determinants of health that impacted care today? How? (Homelessness, low income, unemployed, alcoholism, drug addiction, transportation, low edu. Level, literacy, decrease access to med. care, alf, rehab)? @ -No Was there de-escalation of care discussed even if they declined (Discuss DNR or withdrawal of care, Hospice)? DNR status @ -No What co-morbidities impacted this encounter? (DM, HTN, Smoking, COPD, CAD, Cancer, CVA, ARF, Chemo, Hep., AIDS, mental health diagnosis, sleep apnea, morbid obesity)? @ -Asthma Was patient admitted / discharged? Hospital course, mention meds given and route, prescriptions, significant lab abnormalities, going to OR and other pertinent info. @ -73-year-old female with lightheadedness. Patient is not ataxic, nonfocal exam, stable vitals. She is in sinus rhythm. Chest x-ray is clear. She has normal CBC, normal CMP, negative urinalysis, negative troponin, negative Bobby's well-appearing patient feels better after IV hydration. Stable for discharge with strict return parameters. Undiagnosed new problem with uncertain prognosis? @ -No Drug Therapy requiring intensive monitoring for toxicity (Heparin, Nitro, Insulin, Cardizem)? @ -No Were any procedures done? @ -No Diagnosis/symptom? @ Lightheaded, dehydration Acute, or Chronic, or Acute on Chronic? @ -[acute Uncomplicated (without systemic symptoms) or Complicated (systemic symptoms)? @ -default Side effects of treatment? @ -No Exacerbation, Progression, or Severe Exacerbation? @ -No Poses a threat to life or bodily function? How? (Chest pain, [place], [place], pneumonia, PE, COPD, DKA, ARF, appy, cholecystitis, CVA, Diverticulitis, Homicidal, Suicidal, threat to staff... and all critical care pts) @ -[Low risk at this time - Lab Data Result diagrams: 09/12/23 08:47 09/12/23 08:47 Lab Results 09/12/23 09/12/23 09/12/23 Range/Units 08:47 08:47 08:47 WBC 7.5 (3.8-10.6) k/uL RBC 4.16 (3.80-5.40) m/uL Hgb 12.4 (11.4-16.0) gm/dL Hct 37.2 (34.0-46.0) % MCV 89.4 (80.0-100.0) fL MCH 29.9 (25.0-35.0) pg MCHC 33.4 (31.0-37.0) g/dL RDW 15.0 (11.5-15.5) % Plt Count 272 (150-450) k/uL MPV 7.8 Neutrophils % 65 % Lymphocytes % 22 % Monocytes % 7 % Eosinophils % 3 % Basophils % 1 % Neutrophils # 4.9 (1.3-7.7) k/uL Lymphocytes # 1.7 (1.0-4.8) k/uL Monocytes # 0.6 (0-1.0) k/uL Eosinophils # 0.2 (0-0.7) k/uL Basophils # 0.1 (0-0.2) k/uL PT 10.3 (10.0-12.5) sec INR 0.9 (<1.2) APTT 23.8 (22.0-30.0) sec Sodium (137-145) mmol/L Potassium (3.5-5.1) mmol/L Chloride (98-107) mmol/L Carbon Dioxide (22-30) mmol/L Anion Gap mmol/L BUN (7-17) mg/dL Creatinine (0.52-1.04) mg/dL Est GFR (CKD-EPI)AfAm (>60 ml/min/1.73 sqM) Est GFR (CKD-EPI)NonAf (>60 ml/min/1.73 sqM) Glucose (74-99) mg/dL Calcium (8.4-10.2) mg/dL Total Bilirubin (0.2-1.3) mg/dL AST (14-36) U/L ALT (4-34) U/L Alkaline Phosphatase (38-126) U/L Troponin I (0.000-0.034) ng/mL Total Protein (6.3-8.2) g/dL Albumin (3.5-5.0) g/dL Urine Color Urine Appearance (Clear) Urine pH (5.0-8.0) Ur Specific [place] (1.001-1.035) Urine Protein (Negative) Urine Glucose (UA) (Negative) Urine Ketones (Negative) Urine Blood (Negative) Urine Nitrite (Negative) Urine Bilirubin (Negative) Urine Urobilinogen (<2.0) mg/dL Ur Leukocyte Esterase (Negative) Influenza Type A (PCR) Not Detected (Not Detectd) Influenza Type B (PCR) Not Detected (Not Detectd) RSV (PCR) Not Detected (Not Detectd) SARS-CoV-2 (PCR) Not Detected (Not Detectd) 09/12/23 09/12/23 09/12/23 Range/Units 08:47 08:47 08:47 WBC (3.8-10.6) k/uL RBC (3.80-5.40) m/uL Hgb (11.4-16.0) gm/dL Hct (34.0-46.0) % MCV (80.0-100.0) fL MCH (25.0-35.0) pg MCHC (31.0-37.0) g/dL RDW (11.5-15.5) % Plt Count (150-450) k/uL MPV Neutrophils % % Lymphocytes % % Monocytes % % Eosinophils % % Basophils % % Neutrophils # (1.3-7.7) k/uL Lymphocytes # (1.0-4.8) k/uL Monocytes # (0-1.0) k/uL Eosinophils # (0-0.7) k/uL Basophils # (0-0.2) k/uL PT (10.0-12.5) sec INR (<1.2) APTT (22.0-30.0) sec Sodium 141 (137-145) mmol/L Potassium 4.3 (3.5-5.1) mmol/L Chloride 108 H (98-107) mmol/L Carbon Dioxide 21 L (22-30) mmol/L Anion Gap 12 mmol/L BUN 23 H (7-17) mg/dL Creatinine 0.90 (0.52-1.04) mg/dL Est GFR (CKD-EPI)AfAm 74 (>60 ml/min/1.73 sqM) Est GFR (CKD-EPI)NonAf 64 (>60 ml/min/1.73 sqM) Glucose 105 H (74-99) mg/dL Calcium 9.6 (8.4-10.2) mg/dL Total Bilirubin 0.4 (0.2-1.3) mg/dL AST 21 (14-36) U/L ALT 13 (4-34) U/L Alkaline Phosphatase 108 (38-126) U/L Troponin I <0.012 (0.000-0.034) ng/mL Total Protein 7.3 (6.3-8.2) g/dL Albumin 4.2 (3.5-5.0) g/dL Urine Color Colorless Urine Appearance Clear (Clear) Urine pH 7.0 (5.0-8.0) Ur Specific [place] 1.005 (1.001-1.035) Urine Protein Negative (Negative) Urine Glucose (UA) Negative (Negative) Urine Ketones Negative (Negative) Urine Blood Negative (Negative) Urine Nitrite Negative (Negative) Urine Bilirubin Negative (Negative) Urine Urobilinogen <2.0 (<2.0) mg/dL Ur Leukocyte Esterase Negative (Negative) Influenza Type A (PCR) (Not Detectd) Influenza Type B (PCR) (Not Detectd) RSV (PCR) (Not Detectd) SARS-CoV-2 (PCR) (Not Detectd) Disposition Clinical Impression: Dehydration Disposition: HOME SELF-CARE Condition: Fair Instructions (If sedation given, give patient instructions): Dizziness (ED) Is patient prescribed a controlled substance at d/c from ED?: No Referrals: Jaren Salgado MD [Primary Care Provider] - 1-2 days Time of Disposition: 10:56
[2023-09-12 09:50] LABS: Basophils # (A) 0.1 k/uL (0-0.2); Basophils % (A) 1 %; Eosinophils # (A) 0.2 k/uL (0-0.7); Eosinophils % (A) 3 %; HCT 37.2 % (34.0-46.0); HGB 12.4 gm/dL (11.4-16.0); Lymphocytes # (A) 1.7 k/uL (1.0-4.8); Lymphocytes % (A) 22 %; MCH 29.9 pg (25.0-35.0); MCHC 33.4 g/dL (31.0-37.0); MCV 89.4 fL (80.0-100.0); Mean Platelet Volume 7.8; Monocytes # (A) 0.6 k/uL (0-1.0); Monocytes % (A) 7 %; Neutrophils # (A) 4.9 k/uL (1.3-7.7); Neutrophils % (A) 65 %; Platelet Count 272 k/uL (150-450); RBC 4.16 m/uL (3.80-5.40); WBC 7.5 k/uL (3.8-10.6)
[2023-09-12 09:58] LABS: INR 0.9 (<1.2); Partial Thromboplastin Time 23.8 sec (22.0-30.0); Prothrombin Time 10.3 sec (10.0-12.5)
[2023-09-12 10:02] LABS: Appearance,Urine Clear (Clear); Bilirubin,Urine Negative (Negative); Blood,Urine Negative (Negative); Color,Urine Colorless; Glucose,Urine (UA) Negative (Negative); Ketones,Urine Negative (Negative); Leukocyte Esterase,Urine Negative (Negative); Nitrite,Urine Negative (Negative); Protein,Urine Negative (Negative); Specific Gravity,Urine 1.005 (1.001-1.035); Urobilinogen,Urine <2.0 mg/dL (<2.0)
--- NOTE | 2023-09-12 10:15 | XR ---
EXAMINATION TYPE: XR chest 2V DATE OF EXAM: 09/12/2023 COMPARISON: 05/30/2023 INDICATION: Dizzy congestion TECHNIQUE: Frontal and lateral views of the chest are obtained. FINDINGS: The heart size is normal. The pulmonary vasculature is normal. The lungs are clear. IMPRESSION: 1. No acute pulmonary process.
[2023-09-12 10:27] VITALS: BP 138/72; PULSE 58
[2023-09-12 10:50] LABS: ALT 13 U/L (4-34); AST 21 U/L (14-36); African American GFR (CKD) 74 (>60 ml/min/1.73 sqM); Albumin 4.2 g/dL (3.5-5.0); Alkaline Phosphatase 108 U/L (38-126); Anion Gap 12 mmol/L; Blood Urea Nitrogen 23 mg/dL (7-17); Calcium 9.6 mg/dL (8.4-10.2); Carbon Dioxide 21 mmol/L (22-30); Chloride 108 mmol/L (98-107); Glucose 105 mg/dL (74-99); Non-African American GFR(CKD) 64 (>60 ml/min/1.73 sqM); Potassium 4.3 mmol/L (3.5-5.1); Sodium 141 mmol/L (137-145); Total Bilirubin 0.4 mg/dL (0.2-1.3); Total Protein 7.3 g/dL (6.3-8.2)
== END 2023-09-12 19:40 | disposition home or self-care (01) ==
LOC: EC 08:24
DX: E86.0 Dehydration (principal); R00.1 Bradycardia, unspecified; J45.909 Unspecified asthma, uncomplicated; F17.200 Nicotine dependence, unspecified, uncomplicated; Z20.822 Contact with and (suspected) exposure to COVID-19; Z79.51 Long term (current) use of inhaled steroids; Z79.899 Other long term (current) drug therapy
CPT/HCPCS: 36415; 71046; 80053; 81003; 84484; 85025; 85610; 85730; 87636; 93005; 96360; 99284

== ENCOUNTER 2023-09-22 00:33 | Inpatient (IN) | payer MEDICARE, OTHER ==
[2023-09-22] MEDS ORDERED: SODIUM CHLORIDE 0.9% 1,000 ML IV STA (02:20)
[2023-09-22] MEDS ORDERED: MECLIZINE 12.5 MG TAB PO STA (02:20)
[2023-09-22 02:45] LABS: Basophils # (A) 0.1 k/uL (0-0.2); Basophils % (A) 1 %; Eosinophils # (A) 0.1 k/uL (0-0.7); Eosinophils % (A) 2 %; HCT 43.1 % (34.0-46.0); HGB 13.7 gm/dL (11.4-16.0); Hypochromasia Slight; Lymphocytes % (A) 23 %; MCH 28.9 pg (25.0-35.0); MCHC 31.7 g/dL (31.0-37.0); MCV 91.1 fL (80.0-100.0); Monocytes # (A) 0.6 k/uL (0-1.0); Monocytes % (A) 7 %; Neutrophils # (A) 5.5 k/uL (1.3-7.7); Neutrophils % (A) 66 %; Platelet Count 279 k/uL (150-450); RBC 4.73 m/uL (3.80-5.40); WBC 8.4 k/uL (3.8-10.6)
[2023-09-22 02:56] LABS: ALT 18 U/L (4-34); African American GFR (CKD) 85 (>60 ml/min/1.73 sqM); Albumin 4.8 g/dL (3.5-5.0); Anion Gap 12 mmol/L; Blood Urea Nitrogen 11 mg/dL (7-17); Calcium 9.7 mg/dL (8.4-10.2); Carbon Dioxide 22 mmol/L (22-30); Chloride 109 mmol/L (98-107); Glucose 103 mg/dL (74-99); Non-African American GFR(CKD) 74 (>60 ml/min/1.73 sqM); Sodium 143 mmol/L (137-145); Total Bilirubin 0.5 mg/dL (0.2-1.3); Total Protein 8.5 g/dL (6.3-8.2)
--- NOTE | 2023-09-22 02:58 | ED ---
Dizziness HPI - General Chief Complaint: Dizziness Stated Complaint: High BP light headed chest pressure Time Seen by Provider: 09/22/23 01:10 Source: patient Mode of arrival: ambulatory Limitations: no limitations - History of Present Illness Initial Comments: 73-year-old female presents emergency department with presyncopal sensation and chest pain. States that for the past couple of weeks she has had some ear pain and pressure. She was diagnosed with a sinus infection to her primary care office. They placed her on antibiotics for which she states she has been taking. States that she continues to have lightheadedness. States that every time she moves her head she feels like she is going to pass out. She denies any syncopal episodes. Admits to some nausea without vomiting. Does have some centralized chest pressure. No associated shortness of breath. No fevers, chills or cough. No other alleviating, precipitating or modifying factors - Related Data Home Medications Medication Instructions Recorded Confirmed Amiodarone [Cordarone] 100 mg PO DAILY 03/24/23 09/22/23 Apixaban [Eliquis] 5 mg PO BID 03/24/23 09/22/23 Fluticasone Propionate 220 Mcg 2 puff INHALATION RT-BID 03/24/23 09/22/23 [Flovent 220 Mcg Inhaler] Montelukast [Singulair] 10 mg PO HS 03/24/23 09/22/23 amLODIPine [Norvasc] 10 mg PO DAILY 03/24/23 09/22/23 Albuterol Inhaler [Ventolin Hfa 2 puff INHALATION RT-Q6H PRN 09/22/23 09/22/23 Inhaler] Amoxicillin 500 mg PO Q8H 09/22/23 09/22/23 Atorvastatin [Lipitor] 20 mg PO DAILY 09/22/23 09/22/23 Cholecalciferol [Vitamin D3 (25 50 mcg PO DAILY 09/22/23 09/22/23 Mcg = 1000 Iu)] Omeprazole [PriLOSEC] 20 mg PO DAILY 09/22/23 09/22/23 Potassium Chloride ER [K-Dur 10] 10 meq PO DAILY 09/22/23 09/22/23 Previous Rx's Medication Instructions Recorded Losartan [Cozaar] 50 mg PO DAILY #90 tab 09/23/23 Allergies Allergy/AdvReac Type Severity Reaction Status Date / Time No Known Allergies Allergy Verified 09/22/23 06:48 Review of Systems ROS Statement: Those systems with pertinent positive or pertinent negative responses have been documented in the HPI. ROS Other: All systems not noted in ROS Statement are negative. Past Medical History Past Medical History: Asthma Additional Past Medical History / Comment(s): Heart murmur, bronchitis. History of Any Multi-Drug Resistant Organisms: None Reported Past Surgical History: No Surgical Hx Reported Past Psychological History: No Psychological Hx Reported Smoking Status: Current some day smoker Past Alcohol Use History: None Reported Past Drug Use History: None Reported General Exam Limitations: no limitations General appearance: alert, in no apparent distress Head exam: Present: atraumatic, normocephalic, normal inspection Eye exam: Present: normal appearance, PERRL, EOMI. Absent: scleral icterus, conjunctival injection, periorbital swelling ENT exam: Present: normal exam, mucous membranes moist Neck exam: Present: normal inspection. Absent: tenderness, meningismus, lymphadenopathy Respiratory exam: Present: normal lung sounds bilaterally. Absent: respiratory distress, wheezes, rales, rhonchi, stridor Cardiovascular Exam: Present: regular rate, normal rhythm, normal heart sounds. Absent: systolic murmur, diastolic murmur, rubs, gallop, clicks GI/Abdominal exam: Present: soft, normal bowel sounds. Absent: distended, tenderness, guarding, rebound, rigid Extremities exam: Present: normal inspection, full ROM, normal capillary refill. Absent: tenderness, pedal edema, joint swelling, calf tenderness Back exam: Present: normal inspection Neurological exam: Present: alert, oriented X3, CN II-XII intact Psychiatric exam: Present: normal affect, normal mood Skin exam: Present: warm, dry, intact, normal color. Absent: rash Course Vital Signs 09/22/23 09/22/23 09/22/23 00:37 02:00 03:00 Temperature 98.1 F Pulse Rate 70 55 L 68 Pulse Rate [ Sitting] Pulse Rate [ Standing] Pulse Rate [ Supine] Respiratory 18 15 20 Rate Blood Pressure 177/72 150/85 168/76 Blood Pressure [Sitting] Blood Pressure [Standing] Blood Pressure [Supine] O2 Sat by Pulse 98 97 96 Oximetry 09/22/23 09/22/23 09/22/23 03:10 04:00 08:09 Temperature Pulse Rate 56 L 60 Pulse Rate [ 61 Sitting] Pulse Rate [ 64 Standing] Pulse Rate [ 58 L Supine] Respiratory 20 16 Rate Blood Pressure 146/81 Blood Pressure 161/98 [Sitting] Blood Pressure 159/85 [Standing] Blood Pressure 168/76 [Supine] O2 Sat by Pulse 97 Oximetry 09/22/23 09/22/23 09/22/23 08:30 09:00 09:30 Temperature Pulse Rate 57 L 50 L 52 L Pulse Rate [ Sitting] Pulse Rate [ Standing] Pulse Rate [ Supine] Respiratory 18 18 18 Rate Blood Pressure 166/77 Blood Pressure [Sitting] Blood Pressure [Standing] Blood Pressure [Supine] O2 Sat by Pulse Oximetry 09/22/23 09/22/23 09/22/23 10:00 10:30 11:00 Temperature Pulse Rate 57 L 54 L 53 L Pulse Rate [ Sitting] Pulse Rate [ Standing] Pulse Rate [ Supine] Respiratory 16 18 16 Rate Blood Pressure 141/80 138/76 Blood Pressure [Sitting] Blood Pressure [Standing] Blood Pressure [Supine] O2 Sat by Pulse Oximetry 09/22/23 09/22/23 09/22/23 15:40 17:40 20:00 Temperature 98.2 F Pulse Rate 55 L 63 Pulse Rate [ 60 Sitting] Pulse Rate [ Standing] Pulse Rate [ Supine] Respiratory 16 16 18 Rate Blood Pressure 163/84 151/82 Blood Pressure 138/75 [Sitting] Blood Pressure [Standing] Blood Pressure [Supine] O2 Sat by Pulse 97 Oximetry 09/23/23 02:00 Temperature 97.6 F Pulse Rate Pulse Rate [ 62 Sitting] Pulse Rate [ Standing] Pulse Rate [ Supine] Respiratory 19 Rate Blood Pressure Blood Pressure 131/85 [Sitting] Blood Pressure [Standing] Blood Pressure [Supine] O2 Sat by Pulse 100 Oximetry Medical Decision Making - Medical Decision Making Was pt. sent in by a medical professional or institution (, PA, HORTICULTURAL FARM MANAGER, urgent care, hospital, or longterm...) When possible be specific @ -No Did you speak to anyone other than the patient for history (EMS, parent, family, police, friend...)? What history was obtained from this source @ -Spoke with her sister Did you review nursing and triage notes (agree or disagree)? Why? @ -I reviewed and agree with nursing and triage notes Were old charts reviewed (outside hosp., previous admission, EMS record, old EKG, old radiological studies, urgent care reports/EKG's, longterm records)? Report findings @ -No old charts were reviewed Differential Diagnosis (chest pain, altered mental status, abdominal pain women, abdominal pain men, vaginal bleeding, weakness, fever, dyspnea, syncope, headache, dizziness, GI bleed, back pain, seizure, CVA, palpatations, mental health, musculoskeletal)? @ -Differential Syncope: Valvular disease, hypertrophic cardiomyopathy, pulmonary embolism, tamponade, tachycardia, bradycardia, CA, hypovolemia, hemorrhage, dissection, anemia, intracranial hemorrhage, seizure, hypoglycemia, carbon monoxide poisoning, this is not meant to be an all-inclusive list. EKG interpreted by me (3pts min.). @ -Yes and demonstrates sinus rhythm with a rate of 65. MA interval 152. QRS 91. QTc of 371. No acute ST segment elevations or depressions X-rays interpreted by me (1pt min.). @ -Yes and demonstrates no acute process CT interpreted by me (1pt min.). @ -Yes and demonstrates no acute process U/S interpreted by me (1pt. min.). @ -None done What testing was considered but not performed or refused? (CT, X-rays, U/S, labs)? Why? @ -None What meds were considered but not given or refused? Why? @ -None Did you discuss the management of the patient with other professionals (professionals i.e. , PA, HORTICULTURAL FARM MANAGER, lab, RT, psych nurse, social services director, e business specialist, teacher, protective officer, manager case)? Give summary @ -Spoke with Dr. Baker who agreed to admit the patient Was smoking cessation discussed for >3mins.? @ -No Was critical care preformed (if so, how long)? @ -No Were there social determinants of health that impacted care today? How? (Homelessness, low income, unemployed, alcoholism, drug addiction, transportation, low edu. Level, literacy, decrease access to med. care, penitentiary, re hab)? @ -No Was there de-escalation of care discussed even if they declined (Discuss DNR or withdrawal of care, Hospice)? DNR status @ -No What co-morbidities impacted this encounter? (DM, HTN, Smoking, COPD, CAD, Cancer, CVA, ARF, Chemo, Hep., AIDS, mental health diagnosis, sleep apnea, morbid obesity)? @ -None Was patient admitted / discharged? Hospital course, mention meds given and route, prescriptions, significant lab abnormalities, going to OR and other pertinent info. @ -Upon arrival patient was placed into room 25. Thorough history and physical exam was performed. IV access is established. Laboratory studies are conducted. Patient was given a dose of meclizine. She does have a CT of her head performed as well as a chest x-ray. Results are discussed with patient. Continues to feel lightheaded. I did offer admission for which the patient was agreeable. Spoke with Dr. Baker who agreed to admission Undiagnosed new problem with uncertain prognosis? @ -No Drug Therapy requiring intensive monitoring for toxicity (Heparin, Nitro, Insulin, Cardizem)? @ -No Were any procedures done? @ -No Diagnosis/symptom? @ -Near syncope Acute, or Chronic, or Acute on Chronic? @ -Acute Uncomplicated (without systemic symptoms) or Complicated (systemic symptoms)? @ -Complicated Side effects of treatment? @ -No Exacerbation, Progression, or Severe Exacerbation? @ -No Poses a threat to life or bodily function? How? (Chest pain, USA, CA, pneumonia, PE, COPD, DKA, ARF, appy, cholecystitis, CVA, Diverticulitis, Homicidal, Suicidal, threat to staff... and all critical care pts) @ -No - Lab Data Result diagrams: 09/23/23 05:35 09/23/23 05:35 Lab Results 09/22/23 09/22/23 09/22/23 Range/Units 02:30 02:30 02:30 WBC 8.4 (3.8-10.6) k/uL RBC 4.73 (3.80-5.40) m/uL Hgb 13.7 (11.4-16.0) gm/dL Hct 43.1 (34.0-46.0) % MCV 91.1 (80.0-100.0) fL MCH 28.9 (25.0-35.0) pg MCHC 31.7 (31.0-37.0) g/dL RDW 15.0 (11.5-15.5) % Plt Count 279 (150-450) k/uL MPV 8.0 Neutrophils % 66 % Lymphocytes % 23 % Monocytes % 7 % Eosinophils % 2 % Basophils % 1 % Neutrophils # 5.5 (1.3-7.7) k/uL Lymphocytes # 2.0 (1.0-4.8) k/uL Monocytes # 0.6 (0-1.0) k/uL Eosinophils # 0.1 (0-0.7) k/uL Basophils # 0.1 (0-0.2) k/uL Hypochromasia Slight Sodium 143 (137-145) mmol/L Potassium 4.4 (3.5-5.1) mmol/L Chloride 109 H (98-107) mmol/L Carbon Dioxide 22 (22-30) mmol/L Anion Gap 12 mmol/L BUN 11 (7-17) mg/dL Creatinine 0.80 (0.52-1.04) mg/dL Est GFR (CKD-EPI)AfAm 85 (>60 ml/min/1.73 sqM) Est GFR (CKD-EPI)NonAf 74 (>60 ml/min/1.73 sqM) Glucose 103 H (74-99) mg/dL Calcium 9.7 (8.4-10.2) mg/dL Total Bilirubin 0.5 (0.2-1.3) mg/dL AST 28 (14-36) U/L ALT 18 (4-34) U/L Alkaline Phosphatase 122 (38-126) U/L Troponin I <0.012 (0.000-0.034) ng/mL Total Protein 8.5 H (6.3-8.2) g/dL Albumin 4.8 (3.5-5.0) g/dL Urine Color Urine Appearance (Clear) Urine pH (5.0-8.0) Ur Specific Clover (1.001-1.035) Urine Protein (Negative) Urine Glucose (UA) (Negative) Urine Ketones (Negative) Urine Blood (Negative) Urine Nitrite (Negative) Urine Bilirubin (Negative) Urine Urobilinogen (<2.0) mg/dL Ur Leukocyte Esterase (Negative) Influenza Type A (PCR) (Not Detectd) Influenza Type B (PCR) (Not Detectd) RSV (PCR) (Not Detectd) SARS-CoV-2 (PCR) (Not Detectd) 09/22/23 09/22/23 Range/Units 03:05 03:05 WBC (3.8-10.6) k/uL RBC (3.80-5.40) m/uL Hgb (11.4-16.0) gm/dL Hct (34.0-46.0) % MCV (80.0-100.0) fL MCH (25.0-35.0) pg MCHC (31.0-37.0) g/dL RDW (11.5-15.5) % Plt Count (150-450) k/uL MPV Neutrophils % % Lymphocytes % % Monocytes % % Eosinophils % % Basophils % % Neutrophils # (1.3-7.7) k/uL Lymphocytes # (1.0-4.8) k/uL Monocytes # (0-1.0) k/uL Eosinophils # (0-0.7) k/uL Basophils # (0-0.2) k/uL Hypochromasia Sodium (137-145) mmol/L Potassium (3.5-5.1) mmol/L Chloride (98-107) mmol/L Carbon Dioxide (22-30) mmol/L Anion Gap mmol/L BUN (7-17) mg/dL Creatinine (0.52-1.04) mg/dL Est GFR (CKD-EPI)AfAm (>60 ml/min/1.73 sqM) Est GFR (CKD-EPI)NonAf (>60 ml/min/1.73 sqM) Glucose (74-99) mg/dL Calcium (8.4-10.2) mg/dL Total Bilirubin (0.2-1.3) mg/dL AST (14-36) U/L ALT (4-34) U/L Alkaline Phosphatase (38-126) U/L Troponin I (0.000-0.034) ng/mL Total Protein (6.3-8.2) g/dL Albumin (3.5-5.0) g/dL Urine Color Colorless Urine Appearance Clear (Clear) Urine pH 5.5 (5.0-8.0) Ur Specific Clover 1.003 (1.001-1.035) Urine Protein Negative (Negative) Urine Glucose (UA) Negative (Negative) Urine Ketones Negative (Negative) Urine Blood Negative (Negative) Urine Nitrite Negative (Negative) Urine Bilirubin Negative (Negative) Urine Urobilinogen <2.0 (<2.0) mg/dL Ur Leukocyte Esterase Negative (Negative) Influenza Type A (PCR) Not Detected (Not Detectd) Influenza Type B (PCR) Not Detected (Not Detectd) RSV (PCR) Not Detected (Not Detectd) SARS-CoV-2 (PCR) Not Detected (Not Detectd) Disposition Clinical Impression: Chest pain, Near syncope Disposition: ADMITTED IP TO THIS HOSP Condition: Stable Is patient prescribed a controlled substance at d/c from ED?: No Time of Disposition: 05:46 Decision to Admit Reason: Admit from EC Decision Date: 09/22/23 Decision Time: 05:46
[2023-09-22 03:00] LABS: AST 28 U/L (14-36); Alkaline Phosphatase 122 U/L (38-126); Potassium 4.4 mmol/L (3.5-5.1)
--- NOTE | 2023-09-22 03:09 | XR ---
EXAM: XR Chest, 2 Views CLINICAL HISTORY: ITS.REASON XR Reason: chest painm TECHNIQUE: Frontal and lateral views of the chest. COMPARISON: No relevant prior studies available. FINDINGS: Lungs: No consolidation or mass. Pleural space: No effusion. Heart: Mild cardiomegaly. Bones/joints: No acute findings. IMPRESSION: No acute cardiopulmonary process.
[2023-09-22 04:16] LABS: Appearance,Urine Clear (Clear); Bilirubin,Urine Negative (Negative); Blood,Urine Negative (Negative); Color,Urine Colorless; Glucose,Urine (UA) Negative (Negative); Ketones,Urine Negative (Negative); Leukocyte Esterase,Urine Negative (Negative); Nitrite,Urine Negative (Negative); PH, Urine 5.5 (5.0-8.0); Protein,Urine Negative (Negative); Specific Gravity,Urine 1.003 (1.001-1.035); Urobilinogen,Urine <2.0 mg/dL (<2.0)
[2023-09-22] MEDS ORDERED: NALOXONE 0.4 MG/ML 1 ML VIAL IV PRN (05:46)
--- NOTE | 2023-09-22 08:38 | CT ---
EXAMINATION TYPE: CT brain wo con DATE OF EXAM: 09/22/2023 COMPARISON: None HISTORY: 73-year-old female vertigo TECHNIQUE: Examination was done in axial plane without intravenous contrast. Coronal and sagittal r econstructions performed. CT DLP: 1027.4 mGycm Automated exposure control for dose reduction was used. FINDINGS: There is no evidence of acute intracranial hemorrhage, acute ischemic changes, mass, mass-effect, or extra-axial fluid collection. There is no effacement of cerebral sulci or basal subarachnoid cister ns. There is no hydrocephalus. There is no midline shift. Berrios-white matter distinction is preserv ed. Mild patchy white matter hypodensities in both cerebral hemispheres. Old lacunar infarct left basal g anglia. Prominent atherosclerotic calcifications of the bilateral carotid siphons. Paranasal sinuses and mastoid air cells are well pneumatized. Orbits and globes are intact. IMPRESSION: Mild burden of chronic small vessel ischemic disease. Old lacunar infarct left basal ganglia. No acut e intracranial abnormality seen.
[2023-09-22] MEDS: amLODIPine 10 MG TAB PO SCH (09:40)
[2023-09-22] MEDS: ATORVASTATIN 20 MG TAB PO SCH (09:40)
[2023-09-22] MEDS: POTASSIUM CHLORIDE ER 10 MEQ TAB.ER.PRT PO SCH (09:40)
[2023-09-22] MEDS: LOSARTAN 25 MG TAB PO SCH (09:40)
[2023-09-22] MEDS: APIXABAN 5 MG TAB PO SCH ×2 (09:41→20:56)
[2023-09-22] MEDS: AMIODARONE 100 MG TAB PO SCH (09:41)
--- NOTE | 2023-09-22 12:05 | P.CRDCN ---
History of Present Illness Consult date: 09/22/23 Consult reason: chest pain (Near syncope) History of present illness: History of present illness: This is a 73-year-old female patient of Dr. Monterroso with past medical history of paroxysmal atrial fibrillation on anticoagulation with Eliquis 5 mg twice daily, coronary artery disease, hypertension, hyperlipidemia, remote history of tobacco use and dependence. We have been asked to evaluate the patient for chest pain and near syncope. Patient states that she has been treated recently for sinus and ear infection. She was feeling lightheaded and dizzy while she was in the bathroom. Patient denies having any loss of consciousness. She states she does have a pinching sensation of chest pain in the center of her chest. No fever or chills. She has been taking all of her medications as directed. EKG sinus rhythm Chest x-ray: No acute process CAT scan of the brain chronic small vessel ischemic disease, no acute process. CBC normal. Electrolytes unremarkable. Creatinine 0.8. Blood sugar 103. Troponin negative x 3. Urinalysis negative. Influenza A, influenza B, RSV, COVID-19 not detected. Home cardiac medications: Amiodarone 100 mg daily, amlodipine 10 mg daily, Eliquis 5 mg twice daily, Lipitor 20 mg daily, losartan 25 mg daily, potassium chloride 10 mill equivalents daily. Cardiac catheterization performed 12/01/2002 revealed 70% OM1. Echocardiogram performed 03/18/2023 revealed normal EF, mild to moderate MR, mild TR. Stress echocardiogram performed 03/25/2023 revealed normal study. Review Of Systems: At the time of my evaluation: Constitutional: No fever, no chills. No weakness, fatigue or lethargy. EENT: No headache. No dizziness. Lungs: No shortness of breath, cough, no sputum production. No wheezing. Cardiovascular: No chest pain, no lower extremity edema. No palpitations. No paroxysmal nocturnal dyspnea. No orthopnea. No lightheadedness or dizziness. No syncopal episodes. Abdominal: No abdominal pain. No nausea, vomiting. No diarrhea. No constipation. No bloody or tarry stools. Genitourinary: No dysuria.. No urinary retention. Musculoskeletal: No myalgias. No muscle weakness, no frequent falls. No back pain. No neck pain. Integumentary: No wounds. No rash. No unusual bruising. Neurologic: No aphasia. No facial droop. No change in mentation. No head injury. No headache. Physical examination: Gen: This is a 73-year-old black female in no acute distress VS: reviewed HEENT: Head is atraumatic, normocephalic. Pupils equal, round. Sclerae is anicteric. NECK: Supple. No JVD. LUNGS: Clear to auscultation. No wheezes or rhonchi. No intercostal retractions. HEART: Regular rate and rhythm. No murmur. ABDOMEN: Soft No tenderness. EXTREMITIES: No pedal edema. No calf tenderness. NEUROLOGICAL: Patient is awake, alert and oriented x3. Assessment: Atypical chest pain Near syncopal episode Sinus bradycardia Paroxysmal atrial fibrillation History of coronary artery disease Hypertension Hyperlipidemia Remote history of tobacco use and dependence Plan: Resume patient's home cardiac medications Patient is not on a beta-alma due to bradycardia Obtain stress echocardiogram today Obtain 2-D echocardiogram and Doppler study to assess cardiac structure and function If echocardiogram and stress echocardiogram are within normal limits, patient is cleared for discharge from cardiology may follow-up with Dr. Monterroso 1 to 2 weeks. Thank you kindly for this consultation. Nurse practitioner note has been reviewed, I agree with documented findings and plan of care. Patient was seen and examined. Past Medical History Past Medical History: Asthma Additional Past Medical History / Comment(s): Heart murmur, bronchitis. History of Any Multi-Drug Resistant Organisms: None Reported Past Surgical History: No Surgical Hx Reported Past Psychological History: No Psychological Hx Reported Smoking Status: Current some day smoker Past Alcohol Use History: None Reported Past Drug Use History: None Reported Medications and Allergies Home Medications Medication Instructions Recorded Confirmed Type Amiodarone [Cordarone] 100 mg PO DAILY 03/24/23 09/22/23 History Apixaban [Eliquis] 5 mg PO BID 03/24/23 09/22/23 History Fluticasone Propionate 220 Mcg 2 puff INHALATION RT-BID 03/24/23 09/22/23 History [Flovent 220 Mcg Inhaler] Montelukast [Singulair] 10 mg PO HS 03/24/23 09/22/23 History amLODIPine [Norvasc] 10 mg PO DAILY 03/24/23 09/22/23 History Albuterol Inhaler [Ventolin Hfa 2 puff INHALATION RT-Q6H PRN 09/22/23 09/22/23 History Inhaler] Amoxicillin 500 mg PO Q8H 09/22/23 09/22/23 History Atorvastatin [Lipitor] 20 mg PO DAILY 09/22/23 09/22/23 History Cholecalciferol [Vitamin D3 (25 50 mcg PO DAILY 09/22/23 09/22/23 History Mcg = 1000 Iu)] Losartan [Cozaar] 25 mg PO DAILY 09/22/23 09/22/23 History Omeprazole [PriLOSEC] 20 mg PO DAILY 09/22/23 09/22/23 History Potassium Chloride ER [K-Dur 10] 10 meq PO DAILY 09/22/23 09/22/23 History Allergies Allergy/AdvReac Type Severity Reaction Status Date / Time No Known Allergies Allergy Verified 09/22/23 06:48 Physical Exam Vitals: Vital Signs Temp Pulse Pulse Pulse Pulse Resp BP 09/22/23 04:00 56 L 20 146/81 09/22/23 03:10 61 64 58 L 09/22/23 03:00 68 20 168/76 09/22/23 02:00 55 L 15 150/85 09/22/23 00:37 98.1 F 70 18 177/72 BP BP BP Pulse Ox 09/22/23 04:00 97 09/22/23 03:10 161/98 159/85 168/76 09/22/23 03:00 96 09/22/23 02:00 97 09/22/23 00:37 98 Intake and Output 09/21/23 09/22/23 09/22/23 22:59 06:59 14:59 Other: Weight 68.039 kg Results 09/22/23 02:30 09/22/23 02:30 Cardiac Enzymes 09/22/23 09/22/23 09/22/23 Range/Units 02:30 02:30 06:47 AST 28 (14-36) U/L Troponin I <0.012 <0.012 (0.000-0.034) ng/mL CBC 09/22/23 Range/Units 02:30 WBC 8.4 (3.8-10.6) k/uL RBC 4.73 (3.80-5.40) m/uL Hgb 13.7 (11.4-16.0) gm/dL Hct 43.1 (34.0-46.0) % Plt Count 279 (150-450) k/uL Comprehensive Metabolic Panel 09/22/23 Range/Units 02:30 Sodium 143 (137-145) mmol/L Potassium 4.4 (3.5-5.1) mmol/L Chloride 109 H (98-107) mmol/L Carbon Dioxide 22 (22-30) mmol/L BUN 11 (7-17) mg/dL Creatinine 0.80 (0.52-1.04) mg/dL Glucose 103 H (74-99) mg/dL Calcium 9.7 (8.4-10.2) mg/dL AST 28 (14-36) U/L ALT 18 (4-34) U/L Alkaline Phosphatase 122 (38-126) U/L Total Protein 8.5 H (6.3-8.2) g/dL Albumin 4.8 (3.5-5.0) g/dL Current Medications Generic Name Dose Route Start Last Admin Trade Name Freq PRN Reason Stop Dose Admin Meclizine HCl 25 mg 09/22/23 05:48 Meclizine 25 Mg Tab PO TID PRN Vertigo Naloxone HCl 0.2 mg 09/22/23 05:46 Naloxone 0.4 Mg/Ml 1 Ml Vial IV Q2M PRN Opioid Reversal Intake and Output 09/21/23 09/22/23 09/22/23 22:59 06:59 14:59 Other: Weight 68.039 kg 09/22/23 02:30 09/22/23 02:30
--- NOTE | 2023-09-22 13:06 | CA ---
Stress Echo Report Emilia Reyes Age: 73 Gender: F : 1950 Exam Date: 09/22/2023 11:53 Exam Location: [place] Stress Ht (in): 62 Wt (lb): 150 Ordering Physician: Bonnie Aggarwal Referring Physician: MARYLOU, Director Nurses' Registry: MARCY Technologist Procedure CPT: Indication: CP ICD-9 Codes: Rhythm: Patient History: CHEST PAIN, DIFFICULTY IN BREATHING, PALPITATIONS, HTN, ELEVATED CHOLESTEROL LEVELS, FAMILY HX OF HEART DISEASE, FORMER SMOKER, COPD Cardiac Medications: Medications in past 24 hours: Contrast: Stress Results Protocol: Montrell Total dose(mL): Exercise Duration (min:sec): 4:[address] Depression (mm): Angina Score: Dias Score: METS: 6.4 Resting HR: 62 Resting BP: 124 / 62 Peak HR: 121 Peak BP: 124 / 82 Max Predicted HR: 147 82 % Max Predicted HR Target HR: 125 Double Product: [id number] Stress Summary: BP Response: Reason for Termination: MAX EXERTION Cardiac Symptoms: VERTIGO ECG Analysis Resting ECG: Stress ECG: Arrhythmia: Echo Analysis Resting Echo: Peak Echo Analysis: MEASUREMENTS (Male/Female) Normal Values CONCLUSIONS Average exercise tolerance Mild EKG changes in response to exercise Normal echocardiogram in response to exercise Dr. Yemi Godinez MD (Electronically Signed) Final Date: 22 September 2023 13:05
[2023-09-22] MEDS ORDERED: PATIENT'S OWN (Albuterol Inhaler [Ventolin Hfa Inhaler] 60 PUFF Gm) INHALATION PRN (15:40)
[2023-09-22] MEDS: MECLIZINE 25 MG TAB PO PRN (17:39)
--- NOTE | 2023-09-23 02:40 | HP ---
HISTORY AND PHYSICAL CHIEF COMPLAINT: Chest pain. HISTORY OF PRESENT ILLNESS: This is another admission for this 73-year-old female. She comes in with chest pain. She is very anxious and is complaining of chest pain. She came to the emergency room where vital signs and laboratory studies as well as EKG were unremarkable. REVIEW OF SYSTEMS: She denies headaches, diaphoresis, shortness of breath, nausea, or vomiting, etc. Past medical history, family history, personal and social histories are otherwise noncontributory or unchanged. PHYSICAL EXAMINATION: VITAL SIGNS: Normal. HEAD, EARS, EYES, NOSE, MOUTH, AND THROAT: Normal. CHEST: Clear. CARDIAC: Demonstrates sinus rhythm and no murmurs. ABDOMEN: Soft. Nontender. EXTREMITIES: Normal. NEUROLOGICALLY: Intact. DIAGNOSES: She was admitted to the hospital with diagnoses of: 1. Chest pain. 2. History of hypertension. 3. Anxiety. PLAN: 1. Bed rest. 2. IV fluids. 3. Nasal O2. 4. Cardiology consult. MMODL / DARIELAN: [id number] /
[2023-09-23] MEDS: MECLIZINE 25 MG TAB PO PRN ×2 (04:00→17:35)
[2023-09-23] MEDS: LOSARTAN 25 MG TAB PO SCH (07:54)
[2023-09-23] MEDS: APIXABAN 5 MG TAB PO SCH ×2 (07:54→19:36)
[2023-09-23] MEDS: ATORVASTATIN 20 MG TAB PO SCH (07:54)
[2023-09-23] MEDS: amLODIPine 10 MG TAB PO SCH (07:54)
[2023-09-23] MEDS: PANTOPRAZOLE 40 MG TABLET PO SCH (07:54)
[2023-09-23] MEDS: POTASSIUM CHLORIDE ER 10 MEQ TAB.ER.PRT PO SCH (07:54)
[2023-09-23 08:52] LABS: BUN/Creat Ratio 17.64 Ratio (12.00-20.00); Blood Urea Nitrogen 19.4 mg/dL (9.0-27.0); Calcium 9.3 mg/dL (8.7-10.3); Carbon Dioxide 22.6 mmol/L (21.6-31.8); Chloride 108 mmol/L (96-109); Glucose 100 mg/dL (70-110); Potassium 4.5 mmol/L (3.5-5.5); Sodium 142 mmol/L (135-145)
[2023-09-23] MEDS ORDERED: LOSARTAN 25 MG TAB PO STA (09:25)
[2023-09-23 09:32] LABS: Basophils # (A) 0.07 X 10*3/uL (0.00-0.10); Basophils % (A) 0.8 %; Eosinophils # (A) 0.19 X 10*3/uL (0.04-0.35); Eosinophils % (A) 2.3 %; HCT 38.8 % (37.2-46.3); HGB 12.3 g/dL (12.0-15.0); Lymphocytes # (A) 2.03 X 10*3/uL (0.90-5.00); Lymphocytes % (A) 24.4 %; MCH 28.5 pg (27.0-32.0); MCHC 31.7 g/dL (32.0-37.0); Mean Platelet Volume 10.1 FL (9.5-12.2); Monocytes % (A) 9.6 %; NRBC Per 100 WBC 0 X 10*3/uL (0.00-0.01); Neutrophils % (A) 62.5 %; Platelet Count 280 X 10*3/uL (140-440); RBC 4.31 X 10*6/uL (4.10-5.20); RDW 15.5 % (11.5-14.5); WBC 8.32 X 10*3/uL (4.50-10.00)
[2023-09-23] MEDS: AMIODARONE 100 MG TAB PO SCH (10:14)
--- NOTE | 2023-09-23 10:31 | CA ---
Transthoracic Echo Report Name: Emilia Reyes Age: 73 Gender: F : 1950 Exam Date: 09/22/2023 12:07 Exam Location: [place] [facility] Ht (in): 62 Wt (lb): 150 Ordering Physician: Bonnie Aggarwal Attending/Referring Phys: [id number], Jasen Position Classifier Yael Manjarrez [facility] Procedure CPT: Indications: LVF Cardiac Hx: Technical Quality: Contrast 1: Total Dose (mL): Contrast 2: Total Dose (mL): MEASUREMENTS (Male / Female) Normal Values 2D ECHO LV Diastolic Diameter PLAX 4.5 cm 4.2 - 5.9 / 3.9 - 5.3 cm LV Systolic Diameter PLAX 3.0 cm IVS Diastolic Thickness 0.8 cm 0.6 - 1.0 / 0.6 - 0.9 cm LVPW Diastolic Thickness 0.8 cm 0.6 - 1.0 / 0.6 - 0.9 cm LV Relative Wall Thickness 0.4 LVOT Diameter 2.0 cm Ascending Aorta Diameter 3.3 cm M-MODE Aortic Root Diameter MM 2.8 cm LA Systolic Diameter MM 3.3 cm LA Ao Ratio MM 1.2 AV Cusp Separation MM 2.1 cm DOPPLER AV Peak Velocity 146.9 cm/s AV Peak Gradient 8.6 mmHg AV Mean Velocity 101.8 cm/s AV Mean Gradient 4.6 mmHg AV Velocity Time Integral 36.1 cm LVOT Peak Velocity 121.3 cm/s LVOT Peak Gradient 5.9 mmHg LVOT Velocity Time Integral 23.0 cm LVOT Stroke Volume 71.4 cm??? LVOT Stroke Volume Index 42.2 ml/m??? AV Area Cont Eq vti 2.0 cm??? AV Area Cont Eq pk 2.6 cm??? Mitral E Point Velocity 61.6 cm/s Mitral A Point Velocity 100.4 cm/s Mitral E to A Ratio 0.6 MV Deceleration Time 277.3 ms LV E' Lateral Velocity 10.4 cm/s Mitral E to LV E' Lateral Ratio 5.9 LV E' Septal Velocity 6.9 cm/s Mitral E to LV E' Septal Ratio 8.9 TR Peak Velocity 217.3 cm/s TR Peak Gradient 18.9 mmHg Right Atrial Pressure 3.0 mmHg Pulmonary Artery Systolic Pressu 21.9 mmHg Right Ventricular Systolic Press 21.9 mmHg FINDINGS Left Ventricle Left ventricular wall thickness normal. Left ventricular cavity size normal.Normal left ventricular systolic function with no obvious regional wall motion abnormalities. Left ventricular ejection fraction is estimated at 55- 60%. Right Ventricle Normal right ventricular size. Right Atrium Normal right atrial size. Left Atrium Normal left atrial size. Mitral Valve Mitral valve thickened. Mild mitral regurgitation. Aortic Valve Trileaflet aortic valve. Trace aortic regurgitation. Tricuspid Valve Structurally normal tricuspid valve. Trace-mild tricuspid regurgitation. Pulmonic Valve Pulmonic valve not well visualized. Pericardium Small pericardial effusion. Aorta Normal size aortic root and proximal ascending aorta. CONCLUSIONS Normal LV systolic function No significant valvular abnormalities Small pericardial effusion Previewed by: Dr. Yemi Godinez MD (Electronically Signed) Final Date: 23 September 2023 10:30
--- NOTE | 2023-09-23 14:56 | P.PN ---
Subjective Progress Note Date: 09/23/23 Consult reason: chest pain (Near syncope) History of present illness: History of present illness: This is a 73-year-old female patient of Dr. Monterroso with past medical history of paroxysmal atrial fibrillation on anticoagulation with Eliquis 5 mg twice daily, coronary artery disease, hypertension, hyperlipidemia, remote history of tobacco use and dependence. We have been asked to evaluate the patient for chest pain and near syncope. Patient states that she has been treated recently for sinus and ear infection. She was feeling lightheaded and dizzy while she was in the bathroom. Patient denies having any loss of consciousness. She states she does have a pinching sensation of chest pain in the center of her chest. No fever or chills. She has been taking all of her medications as directed. EKG sinus rhythm Chest x-ray: No acute process CAT scan of the brain chronic small vessel ischemic disease, no acute process. CBC normal. Electrolytes unremarkable. Creatinine 0.8. Blood sugar 103. Troponin negative x 3. Urinalysis negative. Influenza A, influenza B, RSV, COVID-19 not detected. Home cardiac medications: Amiodarone 100 mg daily, amlodipine 10 mg daily, Eliquis 5 mg twice daily, Lipitor 20 mg daily, losartan 25 mg daily, potassium chloride 10 mill equivalents daily. Cardiac catheterization performed 12/01/2002 revealed 70% OM1. Echocardiogram performed 03/18/2023 revealed normal EF, mild to moderate MR, mild TR. Stress echocardiogram performed 03/25/2023 revealed normal study. 09/23 Patient denies having any chest pain, no lightheadedness or dizziness. Yesterday she underwent a stress echocardiogram which was an average exercise tolerance, mild EKG changes in response to exercise, normal echocardiogram and response to exercise. Results were reviewed with the patient. Echocardiogram reveals normal LV systolic function. No significant valvular abnormalities. Small pericardial effusion. Blood pressure readings were elevated this morning losartan will be increased. Event monitor will be ordered. Plan to ambulate patient and assess for symptoms. Physical examination: Gen: This is a 73-year-old black female in no acute distress VS: reviewed HEENT: Head is atraumatic, normocephalic. Pupils equal, round. Sclerae is anicteric. NECK: Supple. No JVD. LUNGS: Clear to auscultation. No wheezes or rhonchi. No intercostal retractions. HEART: Regular rate and rhythm. No murmur. ABDOMEN: Soft No tenderness. EXTREMITIES: No pedal edema. No calf tenderness. NEUROLOGICAL: Patient is awake, alert and oriented x3. Assessment: Atypical chest pain Near syncopal episode Sinus bradycardia Paroxysmal atrial fibrillation History of coronary artery disease Hypertension Hyperlipidemia Remote history of tobacco use and dependence Plan: Continue patient's home cardiac medications Patient is not on a beta-alma due to bradycardia Increase losartan to 50 mg daily Obtain event monitor Ambulate patient and if she is asymptomatic, patient is cleared for discharge from cardiology and may follow-up with Dr. Monterroso in the office in 3 to 4 weeks. Nurse practitioner note has been reviewed, I agree with documented findings and plan of care. Patient was seen and examined. Objective - Vital Signs Vital signs: Vital Signs Temp 98.1 F 09/23/23 07:30 Pulse 53 L 09/23/23 07:30 Resp 14 09/23/23 07:30 BP 168/78 09/23/23 07:30 Pulse Ox 100 09/23/23 07:30 FiO2 Intake & Output 09/22/23 09/23/23 09/23/23 18:59 06:59 18:59 Weight 68.039 kg Other: # Voids 1 - Labs CBC & Chem 7: 09/23/23 05:35 09/23/23 05:35 Labs: Abnormal Lab Results - Last 24 Hours (Table) 09/23/23 Range/Units 05:35 Est GFR (CKD-EPI) 53 L (>=60)
[2023-09-23] MEDS: ALBUTEROL NEBULIZED 2.5 MG/3 ML INHALATION PRN (21:44)
[2023-09-24] MEDS: MECLIZINE 25 MG TAB PO PRN (00:09)
--- NOTE | 2023-09-24 05:33 | HP ---
HISTORY AND PHYSICAL CHIEF COMPLAINT: Chest pain. HISTORY OF PRESENT ILLNESS: This is another admission for this 73-year-old female who has had coronary artery problems in the past. However, she is frequently in the office complaining of chest pain, which is largely related to anxiety. She came in this time with chest pain and her EKG and enzymes are normal. She has already been taken for a stress echo. These are normal. PHYSICAL EXAMINATION: CHEST: Clear. CARDIAC: Normal. ABDOMEN: Soft, nontender. EXTREMITIES: Normal. IMPRESSION: 1. Chest pain. 2. History of coronary artery disease. PLAN: Progress activity and she can probably go home anytime since her cardiac studies are negative. MMODL / IJN: [id number] /
[2023-09-24] MEDS: LOSARTAN 50 MG TAB PO SCH (08:51)
[2023-09-24] MEDS: amLODIPine 10 MG TAB PO SCH (08:51)
[2023-09-24] MEDS: AMIODARONE 100 MG TAB PO SCH (08:51)
[2023-09-24] MEDS: PANTOPRAZOLE 40 MG TABLET PO SCH (08:51)
[2023-09-24] MEDS: POTASSIUM CHLORIDE ER 10 MEQ TAB.ER.PRT PO SCH (08:51)
[2023-09-24] MEDS: ATORVASTATIN 20 MG TAB PO SCH (08:52)
[2023-09-24] MEDS: APIXABAN 5 MG TAB PO SCH (08:52)
--- NOTE | 2023-09-24 11:14 | P.PN ---
Subjective Progress Note Date: 09/24/23 Consult reason: chest pain (Near syncope) History of present illness: This is a 73-year-old female patient of Dr. Monterroso with past medical history of paroxysmal atrial fibrillation on anticoagulation with Eliquis 5 mg twice daily, coronary artery disease, hypertension, hyperlipidemia, remote history of tobacco use and dependence. We have been asked to evaluate the patient for chest pain and near syncope. Patient states that she has been treated recently for sinus and ear infection. She was feeling lightheaded and dizzy while she was in the bathroom. Patient denies having any loss of consciousness. She states she does have a pinching sensation of chest pain in the center of her chest. No fever or chills. She has been taking all of her medications as directed. EKG sinus rhythm Chest x-ray: No acute process CAT scan of the brain chronic small vessel ischemic disease, no acute process. CBC normal. Electrolytes unremarkable. Creatinine 0.8. Blood sugar 103. Troponin negative x 3. Urinalysis negative. Influenza A, influenza B, RSV, COVID-19 not detected. Home cardiac medications: Amiodarone 100 mg daily, amlodipine 10 mg daily, El iquis 5 mg twice daily, Lipitor 20 mg daily, losartan 25 mg daily, potassium chloride 10 mill equivalents daily. Cardiac catheterization performed 12/01/2002 revealed 70% OM1. Echocardiogram performed 03/18/2023 revealed normal EF, mild to moderate MR, mild TR. Stress echocardiogram performed 03/25/2023 revealed normal study. 09/23 Patient denies having any chest pain, no lightheadedness or dizziness. Yesterday she underwent a stress echocardiogram which was an average exercise tolerance, mild EKG changes in response to exercise, normal echocardiogram and response to exercise. Results were reviewed with the patient. Echocardiogram reveals normal LV systolic function. No significant valvular abnormalities. Small pericardial effusion. Blood pressure readings were elevated this morning losartan will be increased. Event monitor will be ordered. Plan to ambulate patient and assess for symptoms. 09/24 Yesterday, patient was cleared for discharge from cardiology but in the afternoon prior to her leaving, she developed tightness in her chest along with dizziness. Discharge was held. This morning patient is ambulating in the hallway and feels chest pain on the left side of her chest on the left side of her body. Blood pressure 123/73, heart rate 54, pulse ox 99% on room air. Patient did take her Eliquis this morning. Physical examination: Gen: This is a 73-year-old black female in no acute distress VS: reviewed HEENT: Head is atraumatic, normocephalic. Pupils equal, round. Sclerae is anicteric. NECK: Supple. No JVD. LUNGS: Clear to auscultation. No wheezes or rhonchi. No intercostal retractions. HEART: Regular rate and rhythm. No murmur. ABDOMEN: Soft No tenderness. EXTREMITIES: No pedal edema. No calf tenderness. NEUROLOGICAL: Patient is awake, alert and oriented x3. Assessment: Atypical chest pain Near syncopal episode Sinus bradycardia Paroxysmal atrial fibrillation History of coronary artery disease Hypertension Hyperlipidemia Remote history of tobacco use and dependence Plan: Continue patient's home cardiac medications Patient is not on a beta-alma due to bradycardia Continue increased dose of losartan 50 mg daily Event monitor has been arranged Patient will be scheduled for cardiac catheterization on Wednesday with Dr. Monterroso. Discontinue Eliquis. N.p.o. after midnight on Wednesday. Nurse practitioner note has been reviewed, I agree with documented findings and plan of care. Patient was seen and examined. Objective - Vital Signs Vital signs: Vital Signs Temp 97.8 F 09/24/23 07:00 Pulse 54 L 09/24/23 07:00 Resp 16 09/24/23 07:00 BP 123/73 09/24/23 07:00 Pulse Ox 99 09/24/23 07:00 FiO2 Intake & Output 09/23/23 09/24/23 09/24/23 18:59 06:59 18:59 Intake Total 118 Balance 118 Intake: Oral 118 Other: Voiding Method Toilet # Voids 1 3 - Labs CBC & Chem 7: 09/23/23 05:35 09/23/23 05:35 Labs: Abnormal Lab Results - Last 24 Hours (Table) 09/23/23 09/23/23 Range/Units 05:35 05:35 MCHC 31.7 L (32.0-37.0) g/dL RDW 15.5 H (11.5-14.5) % Est GFR (CKD-EPI) 53 L (>=60)
[2023-09-24] MEDS ORDERED: ALPRAZolam 0.5 MG TAB PO PRN (13:37)
[2023-09-24] MEDS ORDERED: ALPRAZolam 0.25 MG TAB PO PRN (13:37)
[2023-09-24] MEDS ORDERED: NITROGLYCERIN SL TABS 0.4 MG TAB SUBLINGUAL PRN (13:37)
[2023-09-25] MEDS ORDERED: HEPARIN SODIUM,PORCINE (1 ML) 2,500 UNIT in SODIUM CHLORIDE 0.9% 250 ML IRRIGATION PRN (07:00)
[2023-09-25] MEDS ORDERED: HEPARIN SODIUM,PORCINE 10,000 UNIT in SODIUM CHLORIDE 0.9% 1,000 ML IRRIGATION PRN (07:00)
[2023-09-25] MEDS: ATORVASTATIN 20 MG TAB PO SCH (08:16)
[2023-09-25] MEDS: POTASSIUM CHLORIDE ER 10 MEQ TAB.ER.PRT PO SCH (08:16)
[2023-09-25] MEDS: AMIODARONE 100 MG TAB PO SCH (08:16)
[2023-09-25] MEDS: amLODIPine 10 MG TAB PO SCH (08:16)
[2023-09-25] MEDS: LOSARTAN 50 MG TAB PO SCH (08:16)
[2023-09-25] MEDS: PANTOPRAZOLE 40 MG TABLET PO SCH (08:16)
--- NOTE | 2023-09-25 10:37 | P.PN ---
Subjective Progress Note Date: 09/25/23 Consult reason: chest pain (Near syncope) History of present illness: This is a 73-year-old female patient of Dr. Monterroso with past medical history of paroxysmal atrial fibrillation on anticoagulation with Eliquis 5 mg twice daily, coronary artery disease, hypertension, hyperlipidemia, remote history of tobacco use and dependence. We have been asked to evaluate the patient for chest pain and near syncope. Patient states that she has been treated recently for sinus and ear infection. She was feeling lightheaded and dizzy while she was in the bathroom. Patient denies having any loss of consciousness. She states she does have a pinching sensation of chest pain in the center of her chest. No fever or chills. She has been taking all of her medications as directed. EKG sinus rhythm Chest x-ray: No acute process CAT scan of the brain chronic small vessel ischemic disease, no acute process. CBC normal. Electrolytes unremarkable. Creatinine 0.8. Blood sugar 103. Troponin negative x 3. Urinalysis negative. Influenza A, influenza B, RSV, COVID-19 not detected. Home cardiac medications: Amiodarone 100 mg daily, amlodipine 10 mg daily, El iquis 5 mg twice daily, Lipitor 20 mg daily, losartan 25 mg daily, potassium chloride 10 mill equivalents daily. Cardiac catheterization performed 12/01/2002 revealed 70% OM1. Echocardiogram performed 03/18/2023 revealed normal EF, mild to moderate MR, mild TR. Stress echocardiogram performed 03/25/2023 revealed normal study. 09/23 Patient denies having any chest pain, no lightheadedness or dizziness. Yesterday she underwent a stress echocardiogram which was an average exercise tolerance, mild EKG changes in response to exercise, normal echocardiogram and response to exercise. Results were reviewed with the patient. Echocardiogram reveals normal LV systolic function. No significant valvular abnormalities. Small pericardial effusion. Blood pressure readings were elevated this morning losartan will be increased. Event monitor will be ordered. Plan to ambulate patient and assess for symptoms. 09/24 Yesterday, patient was cleared for discharge from cardiology but in the afternoon prior to her leaving, she developed tightness in her chest along with dizziness. Discharge was held. This morning patient is ambulating in the hallway and feels chest pain on the left side of her chest on the left side of her body. Blood pressure 123/73, heart rate 54, pulse ox 99% on room air. Patient did take her Eliquis this morning. 09/25 Patient states that she did have some chest pain last night and she was given ibuprofen which improved the pain. Blood pressure is 139/71, heart rate 56. Patient is scheduled for cardiac catheterization on Wednesday with Dr. Monterroso. Physical examination: Gen: This is a 73-year-old black female in no acute distress VS: reviewed HEENT: Head is atraumatic, normocephalic. Pupils equal, round. Sclerae is anicteric. LUNGS: Clear to auscultation. No wheezes or rhonchi. No intercostal retractions. HEART: Regular rate and rhythm. No murmur. EXTREMITIES: No pedal edema. No calf tenderness. NEUROLOGICAL: Patient is awake, alert and oriented x3. Assessment: Atypical chest pain Near syncopal episode Sinus bradycardia Paroxysmal atrial fibrillation History of coronary artery disease Hypertension Hyperlipidemia Remote history of tobacco use and dependence Plan: Continue patient's home cardiac medications Patient is not on a beta-alma due to bradycardia Continue increased dose of losartan 50 mg daily Event monitor has been arranged Patient will be scheduled for cardiac catheterization on Wednesday with Dr. Monterroso. Discontinue Eliquis. N.p.o. after midnight on Wednesday. Nurse practitioner note has been reviewed, I agree with documented findings and plan of care. Patient was seen and examined. Objective - Vital Signs Vital signs: Vital Signs Temp 97.9 F 09/25/23 07:00 Pulse 56 L 09/25/23 07:00 Resp 17 09/25/23 07:00 BP 139/71 09/25/23 07:00 Pulse Ox 100 09/25/23 07:00 FiO2 Intake & Output 09/24/23 09/25/23 09/25/23 18:59 06:59 18:59 Intake Total 318 Balance 318 Intake: Oral 318 Other: Voiding Method Toilet # Voids 2 3 - Labs CBC & Chem 7: 09/23/23 05:35 09/23/23 05:35
[2023-09-25] MEDS: MECLIZINE 25 MG TAB PO PRN (10:42)
[2023-09-25] MEDS: ALBUTEROL NEBULIZED 2.5 MG/3 ML INHALATION PRN ×2 (11:43→18:37)
[2023-09-26] MEDS: POTASSIUM CHLORIDE ER 10 MEQ TAB.ER.PRT PO SCH (08:23)
[2023-09-26] MEDS: AMIODARONE 100 MG TAB PO SCH (08:24)
[2023-09-26] MEDS: LOSARTAN 50 MG TAB PO SCH (08:24)
[2023-09-26] MEDS: ATORVASTATIN 20 MG TAB PO SCH (08:24)
[2023-09-26] MEDS: amLODIPine 10 MG TAB PO SCH (08:24)
[2023-09-26] MEDS: PANTOPRAZOLE 40 MG TABLET PO SCH (08:24)
[2023-09-26] MEDS: ALBUTEROL NEBULIZED 2.5 MG/3 ML INHALATION PRN ×3 (09:08→22:59)
--- NOTE | 2023-09-26 11:24 | P.PN ---
Subjective Progress Note Date: 09/26/23 Consult reason: chest pain (Near syncope) History of present illness: This is a 73-year-old female patient of Dr. Monterroso with past medical history of paroxysmal atrial fibrillation on anticoagulation with Eliquis 5 mg twice daily, coronary artery disease, hypertension, hyperlipidemia, remote history of tobacco use and dependence. We have been asked to evaluate the patient for chest pain and near syncope. Patient states that she has been treated recently for sinus and ear infection. She was feeling lightheaded and dizzy while she was in the bathroom. Patient denies having any loss of consciousness. She states she does have a pinching sensation of chest pain in the center of her chest. No fever or chills. She has been taking all of her medications as directed. EKG sinus rhythm Chest x-ray: No acute process CAT scan of the brain chronic small vessel ischemic disease, no acute process. CBC normal. Electrolytes unremarkable. Creatinine 0.8. Blood sugar 103. Troponin negative x 3. Urinalysis negative. Influenza A, influenza B, RSV, COVID-19 not detected. Home cardiac medications: Amiodarone 100 mg daily, amlodipine 10 mg daily, El iquis 5 mg twice daily, Lipitor 20 mg daily, losartan 25 mg daily, potassium chloride 10 mill equivalents daily. Cardiac catheterization performed 12/01/2002 revealed 70% OM1. Echocardiogram performed 03/18/2023 revealed normal EF, mild to moderate MR, mild TR. Stress echocardiogram performed 03/25/2023 revealed normal study. 09/23 Patient denies having any chest pain, no lightheadedness or dizziness. Yesterday she underwent a stress echocardiogram which was an average exercise tolerance, mild EKG changes in response to exercise, normal echocardiogram and response to exercise. Results were reviewed with the patient. Echocardiogram reveals normal LV systolic function. No significant valvular abnormalities. Small pericardial effusion. Blood pressure readings were elevated this morning losartan will be increased. Event monitor will be ordered. Plan to ambulate patient and assess for symptoms. 09/24 Yesterday, patient was cleared for discharge from cardiology but in the afternoon prior to her leaving, she developed tightness in her chest along with dizziness. Discharge was held. This morning patient is ambulating in the hallway and feels chest pain on the left side of her chest on the left side of her body. Blood pressure 123/73, heart rate 54, pulse ox 99% on room air. Patient did take her Eliquis this morning. 09/25 Patient states that she did have some chest pain last night and she was given ibuprofen which improved the pain. Blood pressure is 139/71, heart rate 56. Patient is scheduled for cardiac catheterization on Wednesday with Dr. Monterroso. 09/26 Patient episode of chest discomfort on left side yesterday after she ambulated in the hallway. She denies having any chest pain at this time. Heart rate is in the 50s and 60s, blood pressure 141/74. Physical examination: Gen: This is a 73-year-old black female in no acute distress VS: reviewed HEENT: Head is atraumatic, normocephalic. Pupils equal, round. Sclerae is anicteric. LUNGS: Clear to auscultation. No wheezes or rhonchi. No intercostal retractions. HEART: Regular rate and rhythm. No murmur. EXTREMITIES: No pedal edema. No calf tenderness. NEUROLOGICAL: Patient is awake, alert and oriented x3. Assessment: Atypical chest pain Near syncopal episode Sinus bradycardia Paroxysmal atrial fibrillation History of coronary artery disease Hypertension Hyperlipidemia Remote history of tobacco use and dependence Plan: Continue patient's home cardiac medications Patient is not on a beta-alma due to bradycardia Continue increased dose of losartan 50 mg daily Event monitor has been arranged Patient is scheduled for cardiac catheterization on Wednesday with Dr. Monterroso. Discontinue Eliquis. N.p.o. after midnight on Wednesday. Nurse practitioner note has been reviewed, I agree with documented findings and plan of care. Patient was seen and examined. Objective - Vital Signs Vital signs: Vital Signs Temp 98 F 09/26/23 07:00 Pulse 55 L 09/26/23 07:00 Resp 20 09/26/23 07:00 BP 141/74 09/26/23 07:00 Pulse Ox 99 09/26/23 07:00 FiO2 Intake & Output 09/25/23 09/26/23 09/26/23 18:59 06:59 18:59 Intake Total 854 Balance 854 Intake: Oral 854 Other: Voiding Method Toilet Toilet # Voids 2 2 - Labs CBC & Chem 7: 09/23/23 05:35 09/23/23 05:35
[2023-09-26] MEDS: SODIUM CHLORIDE 0.9% 1,000 ML in EMPTY BAG 1 BAG IV SCH (13:54)
--- NOTE | 2023-09-26 18:19 | PN ---
PROGRESS NOTE CHIEF COMPLAINT: Chest pain. HISTORY OF PRESENT ILLNESS: This lady is doing well and is going for cardiac cath tomorrow. PHYSICAL EXAMINATION: CHEST: Clear. CARDIAC: Normal. ABDOMEN: Soft. Nontender. IMPRESSION: Chest pain. PLAN: Cardiac cath tomorrow. MMODL / IJN: [id number] /
--- NOTE | 2023-09-26 19:04 | PN ---
PROGRESS NOTE DATE OF SERVICE: 09/25/2023 CHIEF COMPLAINT: Chest pain. HISTORY OF PRESENT ILLNESS: This lady is not going home. She is waiting for cardiac cath on Wednesday. PHYSICAL EXAMINATION: CHEST: Clear. CARDIAC: Normal. ABDOMEN: Soft, nontender. IMPRESSION: Chest pain. PLAN: Cardiac cath Wednesday. MMODL / IJN: [id number] /
[2023-09-26] MEDS: MECLIZINE 25 MG TAB PO PRN (21:16)
[2023-09-27] MEDS: SODIUM CHLORIDE 0.9% 1,000 ML in EMPTY BAG 1 BAG IV SCH ×2 (06:34→19:46)
[2023-09-27] MEDS ORDERED: ASPIRIN 81 MG PO STA (06:57)
[2023-09-27] MEDS ORDERED: IV FLUID CONTINUATION 1,000 ML IV ONE (07:34)
[2023-09-27] MEDS ORDERED: fentaNYL (PF) 50 MCG/ML 2 ML AMP IVP ONE (07:41)
[2023-09-27] MEDS ORDERED: LIDOCAINE 1% INJ 10MG/ML (20 ML MDV) SQ ONE (07:43)
[2023-09-27] MEDS ORDERED: MIDAZOLAM 2 MG/2 ML VIAL IVP ONE (07:44)
[2023-09-27] MEDS ORDERED: VERAPAMIL SYRINGE (5 MG/10 ML) INTRAARTER ONE (07:46)
[2023-09-27] MEDS ORDERED: HEPARIN SODIUM 1,000 UN/ML (10ML VL) IV ONE (07:50)
[2023-09-27] MEDS ORDERED: IOPAMIDOL-370 100ML BTL INJ ONE (07:55)
[2023-09-27] MEDS ORDERED: RX INFO: IV CONTRAST WAS GIVEN 1 EACH MISC MISCELLANE PRN (08:08)
[2023-09-27] MEDS ORDERED: SODIUM CHLORIDE 0.9% 1,000 ML IV SCH (08:15)
--- NOTE | 2023-09-27 08:15 | P.CARDCATH ---
Date of Procedure: 09/27/23 Description of Procedure: Cardiac Catheterization: The patient is a 73-year-old female with known history of hypertension, hyperlipidemia, mild CAD by cardiac catheterization in 2002 who presented with symptoms of chest discomfort that persisted. She was evaluated by Dr. Godinez and recommendations were made regarding coronary angiography. Recommendations were made regarding cardiac catheterization, the risks and the complications were discussed with the patient who is in full understanding and agreement. Procedure Description: Patient was brought to phlebotomy lab assistant in fasting semi-sedated state after receiving Fentanyl and Benadryl achieiving moderate conscious sedated state. Using Xylocaine Anesthesia and modified Seldinger technique, a 6-Italian sheath was introduced in the right radial artery . Subsequently, selective coronary angiography was performed using a 5-Italian 3.5 bend Terra catheter. Multiple views of the coronary artery including hemiaxial views were obtained. The 5 Italian pigtail catheter was used to cross the aortic valve and LVEDP was calculated. Following that, catheter and sheath were removed. Hemostasis was obtained with deployment of vascular band . There was no immediate complication. Patient was returned to room in stable condition. Of note, the patient received a total of 3500 units of intravenous heparin as well as intra-arterial verapamil. Findings: Left main: This is a short size vessel, bifurcating into LAD and left circumflex, left main has no obstructive disease LAD: This is a large size vessel, reaching to the apex, tortuous, giving rise to a large diagonal branch. The LAD and its branches have no obstructive disease Left circumflex: This is a large nondominant vessel, giving rise to a large obtuse marginal branch that has a 20 to 30% plaque in the midsegment and a 20 to 30% plaque prior to the takeoff of the OM, the rest of the vessel has no high- grade stenosis. RCA: This is a dominant vessel large in caliber bifurcating distally to PDA and PLV, the RCA and its branches have no obstructive disease Left Ventriculogram: Not performed Hemodynamics: There was no gradient across aortic valve, LVEDP was 8-10 mmHg Conclusion: 1. Mild disease in the OM branch 2. No significant obstructive disease in the LAD and the RCA 3. Right dominance 4. Normal LVEDP Recommendations: I have recommended to continue medical therapy with the aggressive coronary risks modifications. The findings and the recommendations were discussed with the patient and she was in full understanding and agreement. Duration of sedation is 15 minutes.
[2023-09-27] MEDS: LOSARTAN 50 MG TAB PO SCH (08:43)
[2023-09-27] MEDS: POTASSIUM CHLORIDE ER 10 MEQ TAB.ER.PRT PO SCH (08:43)
[2023-09-27] MEDS: ATORVASTATIN 20 MG TAB PO SCH (08:43)
[2023-09-27] MEDS: PANTOPRAZOLE 40 MG TABLET PO SCH (08:43)
[2023-09-27] MEDS: AMIODARONE 100 MG TAB PO SCH (08:43)
[2023-09-27] MEDS: amLODIPine 10 MG TAB PO SCH (08:43)
[2023-09-27] MEDS: ALBUTEROL NEBULIZED 2.5 MG/3 ML INHALATION PRN ×2 (11:25→18:08)
--- NOTE | 2023-09-27 20:15 | PN ---
PROGRESS NOTE DATE OF SERVICE: 09/27/2023 CHIEF COMPLAINT: Chest pain. HISTORY OF PRESENT ILLNESS: This lady is apparently going for a heart catheterization today. PHYSICAL EXAMINATION: VITAL SIGNS: Normal. CHEST: Clear. CARDIAC: Normal. IMPRESSION: Chest pain. PLAN: Cardiac cath today. MMODL / IJN: [id number] /
[2023-09-28] MEDS: ALBUTEROL NEBULIZED 2.5 MG/3 ML INHALATION PRN ×4 (02:45→18:24)
[2023-09-28] MEDS: AMIODARONE 100 MG TAB PO SCH (08:27)
[2023-09-28] MEDS: LOSARTAN 50 MG TAB PO SCH (08:27)
[2023-09-28] MEDS: PANTOPRAZOLE 40 MG TABLET PO SCH (08:27)
[2023-09-28] MEDS: ATORVASTATIN 20 MG TAB PO SCH (08:27)
[2023-09-28] MEDS: APIXABAN 5 MG TAB PO SCH ×2 (08:27→19:52)
[2023-09-28] MEDS: amLODIPine 10 MG TAB PO SCH (08:27)
[2023-09-28] MEDS: POTASSIUM CHLORIDE ER 10 MEQ TAB.ER.PRT PO SCH (08:27)
--- NOTE | 2023-09-28 10:52 | P.PN ---
Subjective HISTORY OF PRESENT ILLNESS: This is a 73-year-old female patient of Dr. Monterroso with past medical history of paroxysmal atrial fibrillation on anticoagulation with Eliquis 5 mg twice daily, coronary artery disease, hypertension, hyperlipidemia, remote history of tobacco use and dependence. We have been asked to evaluate the patient for chest pain and near syncope. Patient states that she has been treated recently for sinus and ear infection. She was feeling lightheaded and dizzy while she was in the bathroom. Patient denies having any loss of consciousness. She states she does have a pinching sensation of chest pain in the center of her chest. No fever or chills. She has been taking all of her medications as directed. EKG sinus rhythm Chest x-ray: No acute process CAT scan of the brain chronic small vessel ischemic disease, no acute process. CBC normal. Electrolytes unremarkable. Creatinine 0.8. Blood sugar 103. Troponin negative x 3. Urinalysis negative. Influenza A, influenza B, RSV, COVID-19 not detected. Home cardiac medications: Amiodarone 100 mg daily, amlodipine 10 mg daily, Eliquis 5 mg twice daily, Lipitor 20 mg daily, losartan 25 mg daily, potassium chloride 10 mill equivalents daily. Cardiac catheterization performed 12/01/2002 revealed 70% OM1. Echocardiogram performed 03/18/2023 revealed normal EF, mild to moderate MR, mild TR. Stress echocardiogram performed 03/25/2023 revealed normal study. 09/23 Patient denies having any chest pain, no lightheadedness or dizziness. Yesterday she underwent a stress echocardiogram which was an average exercise tolerance, mild EKG changes in response to exercise, normal echocardiogram and response to exercise. Results were reviewed with the patient. Echocardiogram reveals normal LV systolic function. No significant valvular abnormalities. Small pericardial effusion. Blood pressure readings were elevated this morning losartan will be increased. Event monitor will be ordered. Plan to ambulate patient and assess for symptoms. 09/24 Yesterday, patient was cleared for discharge from cardiology but in the afternoon prior to her leaving, she developed tightness in her chest along with dizziness. Discharge was held. This morning patient is ambulating in the hallway and feels chest pain on the left side of her chest on the left side of her body. Blood pressure 123/73, heart rate 54, pulse ox 99% on room air. Patient did take her Eliquis this morning. 09/25 Patient states that she did have some chest pain last night and she was given ibuprofen which improved the pain. Blood pressure is 139/71, heart rate 56. Patient is scheduled for cardiac catheterization on Wednesday with Dr. Monterroso. 09/26 Patient episode of chest discomfort on left side yesterday after she ambulated in the hallway. She denies having any chest pain at this time. Heart rate is in the 50s and 60s, blood pressure 141/74. September 28, 2023 Patient is status postcardiac catheterization with Dr. Monterroso revealing mild disease in the OM branch, no significant obstructive disease in the LAD and RCA, right dominant system, and normal LVEDP. Medical management was recommended. Patient examined this morning. She denies any chest pain or pressure. She denies any shortness of breath. Radial cath site with pulse present. Telemetry reveals sinus mechanism. PHYSICAL EXAM: VITAL SIGNS: Reviewed. GENERAL: Well-developed in no acute distress. NECK: Supple. No JVD or thyromegaly LUNGS: Respirations even and unlabored. Lungs with mild expiratory wheezing HEART: Regular rate and rhythm. S1 and S2 heard. EXTREMITIES: Normal range of motion. No clubbing or cyanosis. Peripheral pulses intact. No lower extremity edema ASSESSMENT: Atypical chest pain, status post cardiac catheterization as above Near syncopal episode Sinus bradycardia Paroxysmal atrial fibrillation History of coronary artery disease Hypertension Hyperlipidemia Remote history of tobacco use and dependence PLAN: Continue current cardiac medications Patient is stable for discharge home today from a cardiac standpoint Patient is to follow-up postdischarge with Dr. Monterroso in the office Nurse practitioner note has been reviewed by physician. Signing provider agrees with the documented findings, assessment, and plan of care documented by JOWL TRIMMER as a scribe. Objective - Vital Signs Vital signs: Vital Signs Temp 98.0 F 09/28/23 07:05 Pulse 72 09/28/23 08:53 Resp 16 09/28/23 08:53 BP 166/74 09/28/23 07:05 Pulse Ox 97 09/28/23 07:05 FiO2 Intake & Output 09/27/23 09/28/23 09/28/23 18:59 06:59 18:59 Intake Total 193 236 Balance 193 236 Intake: IV 75 Oral 118 236 Other: Voiding Method Toilet # Voids 2 1 - Labs CBC & Chem 7: 09/23/23 05:35 09/23/23 05:35
[2023-09-28] MEDS: SODIUM CHLORIDE 0.9% 1,000 ML in EMPTY BAG 1 BAG IV SCH ×2 (11:06→23:07)
--- NOTE | 2023-09-28 13:21 | PN ---
PROGRESS NOTE DATE OF SERVICE: 09/23/2023 CHIEF COMPLAINT: Chest pain. HISTORY OF PRESENT ILLNESS: This lady is doing well and apparently further cardiac studies were planned, so she will not be discharged. REVIEW OF SYSTEMS: She is not having any chest pain. PHYSICAL EXAMINATION: CHEST: Clear. CARDIAC: Normal. ABDOMEN: Soft, nontender. IMPRESSION: Chest pain. PLAN: Cardiology is planning further studies and she may be undergoing a cardiac cath. MMODL / IJN: [id number] /
--- NOTE | 2023-09-28 22:01 | PN ---
PROGRESS NOTE CHIEF COMPLAINT: Chest pain. HISTORY OF PRESENT ILLNESS: This lady is still in the hospital. She underwent a cardiac cath and it was reported that it was unremarkable. She can probably go home anytime. I am waiting for the all- clear from Cardiology. PHYSICAL EXAMINATION: CHEST: Clear. CARDIAC: Normal. ABDOMEN: Soft, nontender. IMPRESSION: Chest pain. PLAN: Home anytime. MMODL / IJN: [id number] /
--- NOTE | 2023-09-29 00:58 | PN ---
PROGRESS NOTE DATE OF SERVICE: 09/24/2023 CHIEF COMPLAINT: Chest pain. HISTORY OF PRESENT ILLNESS: This lady is doing fairly well and is being further evaluated by Cardiology. PHYSICAL EXAMINATION: VITAL SIGNS: Normal. CHEST: Clear. CARDIAC: Normal. IMPRESSION: Chest pain. PLAN: Further studies are being performed by Cardiology before she is discharged. MMODL / IJN: [id number] /
[2023-09-29] MEDS: ALBUTEROL NEBULIZED 2.5 MG/3 ML INHALATION PRN ×2 (01:45→09:13)
[2023-09-29] MEDS: BENZONATATE 100 MG CAP PO PRN ×2 (05:16→08:34)
[2023-09-29] MEDS: ATORVASTATIN 20 MG TAB PO SCH (08:34)
[2023-09-29] MEDS: AMIODARONE 100 MG TAB PO SCH (08:34)
[2023-09-29] MEDS: LOSARTAN 50 MG TAB PO SCH (08:34)
[2023-09-29] MEDS: APIXABAN 5 MG TAB PO SCH (08:34)
[2023-09-29] MEDS: POTASSIUM CHLORIDE ER 10 MEQ TAB.ER.PRT PO SCH (08:34)
[2023-09-29] MEDS: amLODIPine 10 MG TAB PO SCH (08:35)
[2023-09-29] MEDS: PANTOPRAZOLE 40 MG TABLET PO SCH (08:35)
[2023-09-29 14:20] VITALS: BP 125/74; PULSE 62; RESP 16; TEMP 98.1
--- NOTE | 2023-09-30 19:31 | DS ---
DISCHARGE SUMMARY CHIEF COMPLAINT: Chest pain and dizziness. HISTORY OF PRESENT ILLNESS AND PHYSICAL EXAMINATION: Details of this lady's history and physical can be found in the initial workup. LABORATORY STUDIES: While she is in the hospital, she had laboratory studies, details of which can be found in the laboratory section of her chart. COURSE IN THE HOSPITAL: After admission, she was placed on bedrest, started intravenous fluids and had had serial EKGs and enzymes which were normal. She was seen by Cardiology and evaluated and taken for cardiac cath. Results were clear coronary arteries. It was felt then that she could be discharged. She will go home on her usual activity, diet, medication and follow up in the office. FINAL DIAGNOSES: 1. Chest pain. 2. History of coronary artery disease. 3. Hypertension. 4. Dizziness. OPERATIONS: None. CONSULTATION: Cardiology, she is improved. ASHLEY / JASMYN: [id number] /
== END 2023-09-29 14:21 | disposition home or self-care (01) | DRG 287 ==
LOC: EC 00:33 → OBSVTOIN 05:49 → 6NMEDSUR 05:49
PROVIDERS: ADMIT Family Medicine; ATTEND Family Medicine
PROC: 4A02XM4 Measurement of Cardiac Total Activity, External Approach (ICD-10-PCS; 2023-09-22)
PROC: B2161ZZ Fluoroscopy of Right and Left Heart using Low Osmolar Contrast (ICD-10-PCS; 2023-09-27)
PROC: 4A023N7 Measurement of Cardiac Sampling and Pressure, Left Heart, Percutaneous Approach (ICD-10-PCS; principal; 2023-09-27 07:30)
DX: R07.89 Other chest pain (principal); I31.39 Other pericardial effusion (noninflammatory); I10 Essential (primary) hypertension; I48.0 Paroxysmal atrial fibrillation; E78.5 Hyperlipidemia, unspecified; Z11.52 Encounter for screening for COVID-19; Z79.01 Long term (current) use of anticoagulants; I25.10 Atherosclerotic heart disease of native coronary artery without angina pectoris; F17.210 Nicotine dependence, cigarettes, uncomplicated; R55 Syncope and collapse; I08.3 Combined rheumatic disorders of mitral, aortic and tricuspid valves; I08.1 Rheumatic disorders of both mitral and tricuspid valves; J45.909 Unspecified asthma, uncomplicated; R00.1 Bradycardia, unspecified; F41.9 Anxiety disorder, unspecified; H66.90 Otitis media, unspecified, unspecified ear; R29.810 Facial weakness; Z86.73 Personal history of transient ischemic attack (TIA), and cerebral infarction without residual deficits; Z79.899 Other long term (current) drug therapy
CPT/HCPCS: 36415; 70450; 71046; 80048; 80053; 81003; 84484; 85025; 87636; 93005; 93270; 93306; 93351; 93458; 94640; 99285

== ENCOUNTER 2024-09-14 09:05 | Day surgery (SDC) | payer MEDICARE ==
[2024-09-11 14:34] VITALS: BMI 26.5
[2024-09-14] MEDS ORDERED: LIDOCAINE 1% (10MG/ML) FOR IV START INTRADERMA PRN (09:27)
[2024-09-14] MEDS: LACTATED RINGERS 1,000 ML IV ONE (09:28)
[2024-09-14 09:44] VITALS: TEMP 98.8
[2024-09-14] MEDS: LACTATED RINGERS 1,000 ML IV SCH (09:46)
[2024-09-14] MEDS ORDERED: LIDOCAINE 1% INJ 10MG/ML (20 ML MDV) ONE (10:11)
[2024-09-14] MEDS ORDERED: PROPOFOL 10 MG/ML 20 ML VIAL IV ONE (10:11)
--- NOTE | 2024-09-14 10:28 | P.PCN ---
Date of Procedure: 09/14/24 Preoperative Diagnosis: Screening Postoperative Diagnosis: Diverticulosis Procedure(s) Performed: Colonoscopy Anesthesia: MAC Surgeon: Carmen Mayfield Pathology: none sent Condition: stable Disposition: same day Indications for Procedure: 74-year-old female presents for screening colonoscopy. She states that she possibly has a history of polyps. No rectal bleeding. Risks of procedure was discussed with the patient along with benefits and alternatives. Plan is for colonoscopy. All questions answered. Operative Findings: Diverticulosis Description of Procedure: The patient was brought to the endoscopy suite and placed in left lateral decubitus position and adequate sedation was achieved using conscious sedation. Digital rectal exam was performed and mild internal hemorrhoids were palpated. An endoscope was then placed in the rectum and advanced to the cecum as identified by landmarks including the appendiceal orifice and the ileocecal valve. The prep was good. The colonoscope was then slowly withdrawn, examining for any mucosal abnormalities. The cecum, ascending, transverse, descending and sigmoid colon were visualized adequately. There were no large neoplastic lesions noted throughout the colon. No obvious polyps noted throughout the colon. Moderate amount of diverticulosis noted in the descending and sigmoid colon. Hemostasis was maintained. Retroflexion was performed in the rectum and mild internal hemorrhoids were noted. Excess air was removed, the colonoscope withdrawn and the procedure terminated. The patient was then transferred to the recovery unit in stable condition. Repeat colonoscopy should be performed in 5 years.
[2024-09-14 10:45] VITALS: BP 124/74; PULSE 61; RESP 17
== END 2024-09-14 11:18 | disposition home or self-care (01) ==
LOC: ORWHC2ENDO 09:05
PROVIDERS: ATTEND Surgery
DX: K57.30 Diverticulosis of large intestine without perforation or abscess without bleeding (principal); K64.8 Other hemorrhoids; Z86.0100 Personal history of colon polyps, unspecified; I10 Essential (primary) hypertension; I48.91 Unspecified atrial fibrillation; E78.5 Hyperlipidemia, unspecified; J45.909 Unspecified asthma, uncomplicated; F17.210 Nicotine dependence, cigarettes, uncomplicated; K21.9 Gastro-esophageal reflux disease without esophagitis; Z79.899 Other long term (current) drug therapy; Z79.01 Long term (current) use of anticoagulants
CPT/HCPCS: 45378; J2003; J2704